=== PATIENT | female | born 1965 | race Caucasian/White ===

== ENCOUNTER 2018-04-10 00:29 | Outpatient (CLI) | payer MEDICAID, SELFPAY ==
--- NOTE | 2018-04-10 11:07 | DI.MAMMO_ITS ---
SYMPTOM/DIAGNOSIS: SCREENING, Z12.31, HEALTH MAINTENANCE, Z00.8 MAMMOGRAMS: Mammograms were interpreted according to the usual protocol including computer analysis with CAD system, tomosynthesis and C view imaging. Comparison with prior examinations. Breast density B. No masses or microcalcifications are seen. There is nothing to suggest malignancy. IMPRESSION: Negative mammogram. Routine screening is recommended. Category I. MQSA ASSESSMENT OF FINDINGS: Negative. Category 1. Patient will receive a letter notifying them of these results. BI-RADS category B. There are scattered areas of fibroglandular density.
== END 2018-04-10 00:49 ==
PROVIDERS: PCP Physician Assistant Medical; Visit Provider Physician Assistant Medical
DX: Z12.31 Encounter for screening mammogram for malignant neoplasm of breast (principal)
CPT/HCPCS: 77063; 77067

== ENCOUNTER 2018-06-21 20:58 | Outpatient (REF) | payer MEDICAID, SELFPAY ==
[2018-06-21 21:52] LABS: TSH (W/Ref FT4) 0.27 uIU/mL (0.358-3.74)
== END 2018-06-21 21:18 ==
LOC: NCHCN 20:58
PROVIDERS: PCP Physician Assistant Medical; Visit Provider Specialist/Technologist Athletic Trainer
DX: E03.9 Hypothyroidism, unspecified (principal)
CPT/HCPCS: 84439; 84443

== ENCOUNTER 2019-11-30 18:54 | Outpatient (REF) | payer MEDICAID, SELFPAY ==
[2019-11-30 20:10] LABS: ALT 37 U/L (14-59); AST 23 U/L (15-37); Albumin 4.2 g/dL (3.4-5.0); Alkaline Phosphatase 61 U/L (46-116); Anion Gap 8.2 mmol/L (3-11); BUN 21 mg/dL (7-18); Bilirubin, Total 0.3 mg/dL (0.2-1.0); CO2 29.8 mmol/L (21.0-32.0); CREATININE 1.02 mg/dL (0.55-1.02); Calcium 9.4 mg/dL (8.5-10.1); Calculated LDL 134 mg/dL (<100); Chloride 105 mmol/L (98-107); Cholesterol 214 mg/dL (<200); Estimated GFR 56.06 (mL/min/1.73m2); Glucose 91 mg/dL (74-106); HDL Cholesterol 50 mg/dL (40-60); Potassium 3.5 mmol/L (3.5-5.1); Sodium 143 mmol/L (136-145); TSH 0.46 uIU/mL (0.36-3.74); Total Protein 7.7 g/dL (6.4-8.2); Triglyceride 150 mg/dL (<150)
== END 2019-11-30 19:14 ==
LOC: NCHCN 18:54
PROVIDERS: PCP Physician Assistant Medical; Visit Provider Physician Assistant Medical
DX: E03.9 Hypothyroidism, unspecified (principal); E78.5 Hyperlipidemia, unspecified; I10 Essential (primary) hypertension
CPT/HCPCS: 80053; 80061; 84443

== ENCOUNTER 2020-04-14 16:57 | Outpatient (REF) | payer MEDICAID, SELFPAY | END 2020-04-14 17:17 | LOC: NCHCN 16:57 | PROVIDERS: PCP Physician Assistant Medical; Visit Provider Physician Assistant Medical | DX: N39.0 Urinary tract infection, site not specified (principal) | CPT/HCPCS: 87077; 87086; 87186 ==

== ENCOUNTER 2020-05-15 03:10 | Outpatient (CLI) | payer MEDICAID, SELFPAY ==
[2020-05-15 12:47] LABS: ALT 32 U/L (14-59); AST 18 U/L (15-37); Albumin 4.1 g/dL (3.4-5.0); Alkaline Phosphatase 61 U/L (46-116); Anion Gap 5.3 mmol/L (3-11); BUN 23 mg/dL (7-18); Bilirubin, Total 0.6 mg/dL (0.2-1.0); CO2 32.7 mmol/L (21.0-32.0); CREATININE 0.85 mg/dL (0.55-1.02); Calcium 9.2 mg/dL (8.5-10.1); Calculated LDL 124 mg/dL (<100); Chloride 101 mmol/L (98-107); Cholesterol 197 mg/dL (<200); Glucose 82 mg/dL (74-106); HDL Cholesterol 55 mg/dL (40-60); Sodium 139 mmol/L (136-145); Total Protein 7.3 g/dL (6.4-8.2); Triglyceride 93 mg/dL (<150)
== END 2020-05-15 03:30 ==
PROVIDERS: PCP Physician Assistant Medical; Visit Provider Physician Assistant Medical
DX: E78.5 Hyperlipidemia, unspecified (principal)
CPT/HCPCS: 36415; 80053; 80061

== ENCOUNTER 2021-07-13 10:00 | Outpatient (REF) | payer MEDICAID, SELFPAY ==
[2021-07-13 21:40] LABS: ALT 37 U/L (14-59); AST 18 U/L (15-37); Albumin 4.1 g/dL (3.4-5.0); Alkaline Phosphatase 67 U/L (46-116); Anion Gap 10.1 mmol/L (3-11); BUN 21 mg/dL (7-18); Bilirubin, Total 0.3 mg/dL (0.2-1.0); CO2 28.9 mmol/L (21.0-32.0); CREATININE 0.8 mg/dL (0.55-1.02); Calcium 9.6 mg/dL (8.5-10.1); Calculated LDL 161 mg/dL (<100); Chloride 102 mmol/L (98-107); Cholesterol 261 mg/dL (<200); Glucose 80 mg/dL (74-106); HDL Cholesterol 51 mg/dL (40-60); Potassium 3.5 mmol/L (3.5-5.1); Sodium 141 mmol/L (136-145); TSH 1.42 uIU/mL (0.36-3.74); Total Protein 7.7 g/dL (6.4-8.2); Triglyceride 246 mg/dL (<150)
== END 2021-07-13 10:01 | disposition home or self-care (01) ==
LOC: NCHCN 10:00
PROVIDERS: PCP Physician Assistant Medical; Visit Provider Physician Assistant Medical
DX: E03.9 Hypothyroidism, unspecified (principal); E78.5 Hyperlipidemia, unspecified
CPT/HCPCS: 80053; 80061; 84443

== ENCOUNTER 2021-10-12 15:09 | Outpatient (REF) | payer MEDICAID, SELFPAY ==
[2021-10-12 17:25] LABS: ALT 40 U/L (14-59); AST 23 U/L (15-37); Albumin 4.4 g/dL (3.4-5.0); Alkaline Phosphatase 70 U/L (46-116); Anion Gap 9.4 mmol/L (3-11); BUN 19 mg/dL (7-18); Bilirubin, Total 0.5 mg/dL (0.2-1.0); CO2 29.6 mmol/L (21.0-32.0); CREATININE 0.8 mg/dL (0.55-1.02); Calcium 9.3 mg/dL (8.5-10.1); Calculated LDL 140 mg/dL (<100); Chloride 104 mmol/L (98-107); Cholesterol 219 mg/dL (<200); Glucose 81 mg/dL (74-106); HDL Cholesterol 54 mg/dL (40-60); Potassium 3.9 mmol/L (3.5-5.1); Sodium 143 mmol/L (136-145); Total Protein 7.7 g/dL (6.4-8.2); Triglyceride 125 mg/dL (<150)
== END 2021-10-12 15:10 | disposition home or self-care (01) ==
LOC: NCHCN 15:09
PROVIDERS: PCP Physician Assistant Medical; Visit Provider Physician Assistant Medical
DX: E78.5 Hyperlipidemia, unspecified (principal)
CPT/HCPCS: 80053; 80061

== ENCOUNTER 2021-10-22 10:50 | Outpatient (REF) | payer MEDICAID, SELFPAY ==
[2021-10-22 15:31] LABS: Abs Immature Grans 0.03 10^3/uL (0.0-0.06); Absolute Basophil Count 0.02 10^3/uL (0.0-0.2); Absolute Eosinophil Count 0.06 10^3/uL (0.0-0.7); Absolute Monocyte Count 0.71 10^3/uL (0.1-0.8); Absolute Neutrophil Count 3.42 10^3/uL (1.2-6.7); Basophils % 0.4; Eosinophils % 1.1; HCT 43.2 % (36.0-46.0); HGB 14.8 g/dL (11.2-15.7); Immature Grans % 0.6; Lymphocytes % 19.1; MCH 31.1 pg (27.0-33.0); MCHC 34.3 % (32.0-36.0); MCV 91 fL (80-95); MPV 11.4 fL (8.0-11.0); Monocytes % 13.5; Neutrophils % 65.3; Platelet Count 211 10^3/uL (130-400); RBC 4.76 10^6/uL (3.93-5.22); RDW 12.6 % (11.7-14.6); RDW-SD 41.8 fL; WBC 5.24 10^3/uL (4.4-10.8)
[2021-10-22 15:38] LABS: Anion Gap 9.6 mmol/L (3-11); BUN 19 mg/dL (7-18); CO2 34.4 mmol/L (21.0-32.0); CREATININE 1.2 mg/dL (0.55-1.02); Calcium 9.4 mg/dL (8.5-10.1); Chloride 95 mmol/L (98-107); Estimated GFR 46.14 (mL/min/1.73m2); Glucose 96 mg/dL (74-106); Sodium 139 mmol/L (136-145)
[2021-10-22 15:51] LABS: Potassium 2.7 mmol/L (3.5-5.1)
[2021-10-22 18:38] LABS: Magnesium 2.1 mg/dL (1.8-2.4)
== END 2021-10-22 10:51 | disposition home or self-care (01) ==
LOC: NCHCN 10:50
PROVIDERS: PCP Physician Assistant Medical; Visit Provider Nurse Practitioner Family
DX: R19.7 Diarrhea, unspecified (principal)
CPT/HCPCS: 80048; 83735; 85025

== ENCOUNTER 2021-10-26 18:49 | Outpatient (REF) | payer MEDICAID, SELFPAY ==
[2021-10-26 15:55] LABS: Anion Gap 12.2 mmol/L (3-11); BUN 23 mg/dL (7-18); CO2 28.8 mmol/L (21.0-32.0); CREATININE 1.2 mg/dL (0.55-1.02); Calcium 8.7 mg/dL (8.5-10.1); Chloride 101 mmol/L (98-107); Estimated GFR 46.14 (mL/min/1.73m2); Glucose 134 mg/dL (74-106); Potassium 3.3 mmol/L (3.5-5.1); Sodium 142 mmol/L (136-145)
== END 2021-10-26 18:50 | disposition home or self-care (01) ==
LOC: NCHCN 18:49
PROVIDERS: PCP Physician Assistant Medical; Visit Provider Nurse Practitioner Family
DX: I10 Essential (primary) hypertension (principal)
CPT/HCPCS: 80048

== ENCOUNTER 2021-12-29 15:17 | Outpatient (REF) | payer MEDICAID, SELFPAY ==
[2021-12-29 16:04] LABS: ALT 31 U/L (14-59); AST 17 U/L (15-37); Alkaline Phosphatase 58 U/L (46-116); BUN 24 mg/dL (7-18); Bilirubin, Total 0.3 mg/dL (0.2-1.0); CREATININE 0.9 mg/dL (0.55-1.02); Calculated LDL 85 mg/dL (<100); Chloride 103 mmol/L (98-107); Cholesterol 170 mg/dL (<200); Glucose 97 mg/dL (74-106); HDL Cholesterol 52 mg/dL (40-60); Potassium 3.2 mmol/L (3.5-5.1); Sodium 144 mmol/L (136-145); Total Protein 7.6 g/dL (6.4-8.2); Triglyceride 166 mg/dL (<150)
== END 2021-12-29 15:18 | disposition home or self-care (01) ==
LOC: NCHCN 15:17
PROVIDERS: PCP Physician Assistant Medical; Visit Provider Physician Assistant Medical
DX: E78.5 Hyperlipidemia, unspecified (principal); E87.6 Hypokalemia
CPT/HCPCS: 80053; 80061

== ENCOUNTER 2022-04-21 15:51 | Outpatient (REF) | payer MEDICAID, SELFPAY ==
[2022-04-21 20:56] LABS: Anion Gap 7.8 mmol/L (3-11); BUN 23 mg/dL (7-18); CO2 31.2 mmol/L (21.0-32.0); CREATININE 0.9 mg/dL (0.55-1.02); Calcium 9.6 mg/dL (8.5-10.1); Chloride 101 mmol/L (98-107); Glucose 101 mg/dL (74-106); Sodium 140 mmol/L (136-145); TSH 0.54 uIU/mL (0.36-3.74)
== END 2022-04-21 15:52 | disposition home or self-care (01) ==
LOC: NCHCN 15:51
PROVIDERS: PCP Physician Assistant Medical; Visit Provider Physician Assistant Medical
DX: E03.9 Hypothyroidism, unspecified (principal); E87.6 Hypokalemia
CPT/HCPCS: 80048; 84443

== ENCOUNTER 2022-05-17 04:18 | Outpatient (CLI) | payer MEDICAID, SELFPAY ==
[2022-05-17 12:39] LABS: Anion Gap 9.8 mmol/L (3-11); BUN 23 mg/dL (7-18); CO2 29.2 mmol/L (21.0-32.0); CREATININE 0.8 mg/dL (0.55-1.02); Calcium 9.5 mg/dL (8.5-10.1); Chloride 102 mmol/L (98-107); Estimated GFR 85.35 (mL/min/1.73m2); Glucose 96 mg/dL (74-106); Potassium 3.4 mmol/L (3.5-5.1); Sodium 141 mmol/L (136-145)
== END 2022-05-17 04:19 | disposition home or self-care (01) ==
LOC: LOS 04:18
PROVIDERS: PCP Physician Assistant Medical; Visit Provider Physician Assistant Medical
DX: E87.6 Hypokalemia (principal)
CPT/HCPCS: 36415; 80048

== ENCOUNTER 2022-12-21 11:22 | Outpatient (REF) | payer MEDICAID, SELFPAY ==
[2022-12-21 16:04] LABS: Abs Immature Grans 0.02 10^3/uL (0.0-0.06); Absolute Basophil Count 0.03 10^3/uL (0.0-0.2); Absolute Eosinophil Count 0.33 10^3/uL (0.0-0.7); Absolute Lymphocyte Count 1.24 10^3/uL (1.2-3.4); Absolute Monocyte Count 0.46 10^3/uL (0.1-0.8); Absolute Neutrophil Count 5.13 10^3/uL (1.2-6.7); Basophils % 0.4; Eosinophils % 4.6; HCT 39.3 % (36.0-46.0); HGB 13.4 g/dL (11.2-15.7); Immature Grans % 0.3; Lymphocytes % 17.2; MCH 31.6 pg (27.0-33.0); MCHC 34.1 % (32.0-36.0); MCV 93 fL (80-95); MPV 11.3 fL (8.0-11.0); Monocytes % 6.4; Neutrophils % 71.1; Platelet Count 221 10^3/uL (130-400); RBC 4.24 10^6/uL (3.93-5.22); RDW 13.7 % (11.7-14.6); RDW-SD 46.7 fL; WBC 7.21 10^3/uL (4.4-10.8)
[2022-12-21 16:27] LABS: ALT 29 U/L (14-59); AST 23 U/L (15-37); Alkaline Phosphatase 62 U/L (46-116); Anion Gap 7.9 mmol/L (3-11); BUN 17 mg/dL (7-18); Bilirubin, Total 0.3 mg/dL (0.2-1.0); CO2 31.1 mmol/L (21.0-32.0); CREATININE 0.8 mg/dL (0.55-1.02); Calcium 9.2 mg/dL (8.5-10.1); Calculated LDL 101 mg/dL (<100); Chloride 104 mmol/L (98-107); Cholesterol 175 mg/dL (<200); Estimated GFR 84.82 (mL/min/1.73m2); Ferritin 121 ng/mL (8-252); Glucose 91 mg/dL (74-106); HDL Cholesterol 51 mg/dL (40-60); Magnesium 1.8 mg/dL (1.8-2.4); Potassium 3.3 mmol/L (3.5-5.1); Sodium 143 mmol/L (136-145); TSH 0.64 uIU/mL (0.36-3.74); Total Protein 7.1 g/dL (6.4-8.2); Triglyceride 118 mg/dL (<150)
[2022-12-22 11:04] LABS: Lyme Ab w Rflx to Lyme Confirm Negative (Negative)
[2022-12-23 18:43] LABS: Anaplasma phagocytophilum Negative (Negative); B. miyamotoi PCR Negative (Negative); Babesia divergens/MO-1 Negative (Negative); Babesia duncani Negative (Negative); Babesia microti Negative (Negative); Ehrlichia chaffeensis Negative (Negative); Ehrlichia ewingii/canis Negative (Negative); Ehrlichia muris eauclairensis Negative (Negative)
== END 2022-12-21 11:23 | disposition home or self-care (01) ==
LOC: NCHCN 11:22
PROVIDERS: PCP Physician Assistant Medical; Visit Provider Physician Assistant Medical
DX: E78.5 Hyperlipidemia, unspecified (principal); E03.9 Hypothyroidism, unspecified; I10 Essential (primary) hypertension; M79.18 Myalgia, other site; R79.89 Other specified abnormal findings of blood chemistry
CPT/HCPCS: 80053; 80061; 87798; 82728; 83735; 84443; 85025; 86618

== ENCOUNTER 2023-01-10 13:42 | Outpatient (REF) | payer MEDICAID, SELFPAY ==
[2023-01-10 16:44] LABS: Anion Gap 6.8 mmol/L (3-11); BUN 21 mg/dL (7-18); CO2 29.2 mmol/L (21.0-32.0); CREATININE 0.8 mg/dL (0.55-1.02); Calcium 9.3 mg/dL (8.5-10.1); Chloride 104 mmol/L (98-107); Estimated GFR 84.82 (mL/min/1.73m2); Glucose 139 mg/dL (74-106); Potassium 3.1 mmol/L (3.5-5.1); Sodium 140 mmol/L (136-145)
== END 2023-01-10 13:43 | disposition home or self-care (01) ==
LOC: NCHCN 13:42
PROVIDERS: PCP Physician Assistant Medical; Visit Provider Physician Assistant Medical
DX: E87.6 Hypokalemia (principal)
CPT/HCPCS: 80048

== ENCOUNTER 2023-01-26 17:13 | Outpatient (REF) | payer MEDICAID, SELFPAY ==
[2023-01-26 21:51] LABS: ESR 9 mm/hr (0-30)
[2023-01-26 22:01] LABS: Anion Gap 5.9 mmol/L (3-11); BUN 17 mg/dL (7-18); C-Reactive Protein 0.07 mg/dL (0.0-0.3); CO2 32.1 mmol/L (21.0-32.0); CREATININE 0.9 mg/dL (0.55-1.02); Calcium 9.3 mg/dL (8.5-10.1); Chloride 106 mmol/L (98-107); Estimated GFR 73.64 (mL/min/1.73m2); Glucose 151 mg/dL (74-106); Potassium 3.6 mmol/L (3.5-5.1); Sodium 144 mmol/L (136-145)
[2023-01-27 18:48] LABS: Rheumatoid Factor <8.6 IU/mL (<12.0)
[2023-01-31 11:58] LABS: c-ANCA Negative (Negative); p-ANCA Negative (Negative)
[2023-01-31 16:06] LABS: ANA Interpretation Positive (Negative); ANA Titer Pattern 1:80 Homogeneous
== END 2023-01-26 17:14 | disposition home or self-care (01) ==
LOC: NCHCN 17:13
PROVIDERS: PCP Physician Assistant Medical; Visit Provider Physician Assistant Medical
DX: E87.6 Hypokalemia (principal)
CPT/HCPCS: 80048; 85652; 86038; 86140; 86255; 86431

== ENCOUNTER 2023-03-09 15:07 | Outpatient (REF) | payer MEDICAID, SELFPAY ==
[2023-03-09 16:07] LABS: Anion Gap 8.8 mmol/L (3-11); BUN 16 mg/dL (7-18); CO2 29.2 mmol/L (21.0-32.0); CREATININE 0.9 mg/dL (0.55-1.02); Calcium 9.4 mg/dL (8.5-10.1); Chloride 103 mmol/L (98-107); Estimated GFR 73.64 (mL/min/1.73m2); Glucose 137 mg/dL (74-106); Potassium 3.5 mmol/L (3.5-5.1); Sodium 141 mmol/L (136-145)
== END 2023-03-09 15:08 | disposition home or self-care (01) ==
LOC: NCHCN 15:07
PROVIDERS: PCP Physician Assistant Medical; Visit Provider Physician Assistant Medical
DX: E87.6 Hypokalemia (principal); I10 Essential (primary) hypertension
CPT/HCPCS: 80048

== ENCOUNTER → 2023-03-24 00:31 | Outpatient (CLI) | payer MEDICAID, SELFPAY ==
--- NOTE | 2023-03-24 | DI.RAD_ITS ---
Exam(s) XR KNEE RT 3V AP,LAT,RAJ EXAM: XR KNEE RT 3V AP,LAT,RAJ CLINICAL HISTORY: ARTHRAGLIAS, M25.50. TECHNIQUE: 2D digital imaging was performed of the right knee. Three views obtained. AP, lateral an d PA tunnel views were obtained. COMPARISON: CR XR KNEE LT 3V AP,LAT,RAJ from 03/24/2023 FINDINGS: BONES: No acute fracture is present. No bony destructive lesion is seen. There are subchondral cysts seen in the proximal tibia. JOINTS: There are marked degenerative changes seen in the right knee characterized by joint space ethan rowing and osteophytes. The findings are most marked in the lateral femoral tibial patellofemoral jenifer int. There are several calcifications seen on the lateral view which may represent loose bodies. Th e largest is seen inferior to the patella. SOFT TISSUE: Normal. IMPRESSION: Marked degenerative changes of the right knee with possible loose bodies. DATA REPOSITORY: RADIATION DOSE DELIVERED:
--- NOTE | 2023-03-24 | DI.RAD_ITS ---
Exam(s) XR HAND RT COMPLETE EXAM: XR HAND RT COMPLETE CLINICAL HISTORY: ARTHRALGIAS, M25.50. TECHNIQUE: 2D digital imaging was performed of the right hand. Three images were obtained. AP, late ral and oblique views were obtained. COMPARISON: No exams were available for comparison FINDINGS: BONES: There is fragmentation of the capitate. This appears old. There is a lucency through the mid capitate. No bony destructive lesion is seen. JOINTS: No dislocation present. The metacarpophalangeal joints are well maintained. No erosions or j oint space narrowing is seen. There are mild degenerative changes seen in the hand characterized by osteophytes and joint space narrowing. The findings are most marked at the interphalangeal joints of the fingers. SOFT TISSUE: Normal. IMPRESSION: 1. Mild degenerative changes of the hand. 2. Fragmentation of the capitate which may represent an old nonunited fracture. DATA REPOSITORY: RADIATION DOSE DELIVERED:
--- NOTE | 2023-03-24 | DI.RAD_ITS ---
Exam(s) XR KNEE LT 3V AP,LAT,RAJ EXAM: XR KNEE LT 3V AP,LAT,RAJ CLINICAL HISTORY: ARTHRALGIAS, M25.50. TECHNIQUE: 2D digital imaging was performed of the left knee. Three images were obtained. AP, late ral and PA tunnel views were obtained. COMPARISON: No exams were available for comparison FINDINGS: BONES: No acute fracture is present. No bony destructive lesion is seen. JOINTS: Tricompartment degenerative changes are seen in the knee characterized by joint space narrowi ng and osteophytes. The findings are most marked in the medial femoral tibial and patellofemoral dianne nts. No loose body. SOFT TISSUE: Normal. IMPRESSION: Moderately severe degenerative changes of the left knee. DATA REPOSITORY: RADIATION DOSE DELIVERED:
--- NOTE | 2023-03-24 | DI.RAD_ITS ---
Exam(s) XR HAND LT COMPLETE EXAM: XR HAND LT COMPLETE CLINICAL HISTORY: ARTHRALGIAS, M25.50. TECHNIQUE: 2D digital imaging was performed of the left hand. Three views were obtained. AP, later al and oblique views were obtained. COMPARISON: No exams were available for comparison FINDINGS: BONES: No acute fracture is present. No bony destructive lesion is seen. JOINTS: No dislocation present. Moderate degenerative changes are seen in the left hand characterized by joint space narrowing and osteophytes. No erosions are seen. No periarticular osteopenia is pre sent. SOFT TISSUE: No suspicious soft tissue calcifications are seen. IMPRESSION: Osteoarthritis of the hand. DATA REPOSITORY: RADIATION DOSE DELIVERED:
== END ==
PROVIDERS: PCP Physician Assistant Medical; Visit Provider Physician Assistant Medical
DX: M17.0 Bilateral primary osteoarthritis of knee (principal)
CPT/HCPCS: 73562; 73130

== ENCOUNTER → 2023-04-12 02:14 | Outpatient (CLI) | payer MEDICAID, SELFPAY ==
--- NOTE | 2023-04-12 | DI.MAMMO_ITS ---
Exam(s) MAMMO SCREENING EXAM: MAMMO SCREENING CLINICAL HISTORY: SCREENING, Z12.31 TECHNIQUE: Bilateral full field digital CC and MLO mammographic images were obtained with 3D tomosyn thesis and utilizing computer aided detection (CAD). COMPARISON: Available for comparison. FINDINGS: Masses/Architectural Distortion: None seen. Microcalcifications: No suspicious pleomorphic-type are seen. Skin Thickening/Nipple Retraction: None. IMPRESSION: 1. No significant interval change with no specific features of malignancy noted. 2. Unless there is more urgent need, screening mammography is recommended, as per [employer] guidelines. BI-RADS Category 1 - Negative Breast Density - Category B - Scattered areas of fibroglandular density Breast density category C or D implies that the patient has dense breast tissue. Dense breast tissue is very common and is not abnormal but dense breast tissue can make it harder to find cancer on a ma mmogram. Also, dense breast tissue may increase their breast cancer risk. This information about the result of the mammogram report was provided to the patient to raise their awareness. Use this report when you speak with the patient about their risks for breast cancer, which includes their family hist ory. At that time, you may recommend for more screening tests (Ultrasound or MRI) as they might be us eful based on their risk. A negative radiographic report should not delay biopsy if a dominant or clinically suspicious mass is present. Up to ten percent of cancers are not identified on mammography. A negative report may reinforce clinical impression. Adenosis and dense breasts may obscure an underlying neoplasm. False positive reports average 6 to 10%. Patient will receive a letter notifying them of these results.
== END ==
PROVIDERS: PCP Physician Assistant Medical; Visit Provider Physician Assistant Medical
DX: Z12.31 Encounter for screening mammogram for malignant neoplasm of breast (principal)
CPT/HCPCS: 77063; 77067

== ENCOUNTER 2023-09-12 15:23 | Outpatient (CLI) | payer MEDICAID, SELFPAY ==
--- NOTE | 2023-09-12 10:30 | DI.RAD_ITS ---
Exam(s) XR STANDING ALIGNMENT EXAM: XR STANDING ALIGNMENT CLINICAL HISTORY: BILATERAL KNEE OA. TECHNIQUE: 2D digital imaging was performed. Four images were obtained. COMPARISON: CR RT HIP COMPLETE AP PELVIS from 04/26/2014 CR XR KNEE LT 3V AP,LAT,RAJ from 03/24/2023 CR XR KNEE RT 3V AP,LAT,RAJ from 03/24/2023 FINDINGS: BONES: Since the prior examination the patient has undergone a right total hip replacement. There ar e marked degenerative changes seen in the right knee particularly laterally, characterized by marked narrowing of the joint space and osteophytes. Moderate degenerative changes are seen in the left kne e characterized by joint space narrowing and osteophytes. There is genu valgus on the right. The an kles are well maintained.There is a 2 cm leg length discrepancy with the left longer than the right. SOFT TISSUE: Normal. IMPRESSION: Marked degenerative changes seen in the right knee, moderate degenerative changes seen in the left kn ee. DATA REPOSITORY: RADIATION DOSE DELIVERED:
== END 2023-09-12 15:24 | disposition home or self-care (01) ==
LOC: DIORS 15:24
PROVIDERS: PCP Physician Assistant Medical; Visit Provider Student in an Organized Health Care Education/Training Program
DX: M17.0 Bilateral primary osteoarthritis of knee (principal)
CPT/HCPCS: 77073

== ENCOUNTER 2023-09-20 04:36 | Outpatient (CLI) | payer MEDICAID, SELFPAY ==
[2023-09-20 09:59] LABS: HGB 14.5 g/dL (11.2-15.7); MCH 32.2 pg (27.0-33.0); MCHC 34.5 % (32.0-36.0); MCV 93 fL (80-95); MPV 10.9 fL (8.0-11.0); Platelet Count 222 10^3/uL (130-400); RBC 4.51 10^6/uL (3.93-5.22); RDW-SD 44.6 fL; WBC 7.27 10^3/uL (4.4-10.8)
[2023-09-20 10:36] LABS: Anion Gap 9.8 mmol/L (3-11); BUN 23 mg/dL (7-18); CO2 29.2 mmol/L (21.0-32.0); CREATININE 0.8 mg/dL (0.55-1.02); Calcium 9.6 mg/dL (8.5-10.1); Chloride 103 mmol/L (98-107); Estimated GFR 84.82 (mL/min/1.73m2); Glucose 98 mg/dL (74-106); Potassium 3.5 mmol/L (3.5-5.1); Sodium 142 mmol/L (136-145)
== END 2023-09-20 04:37 | disposition home or self-care (01) ==
LOC: LBO 04:36
PROVIDERS: PCP Physician Assistant Medical; Visit Provider Student in an Organized Health Care Education/Training Program
DX: M17.0 Bilateral primary osteoarthritis of knee (principal); Z01.818 Encounter for other preprocedural examination
CPT/HCPCS: 36415; 80048; 85027

== ENCOUNTER 2023-09-27 08:15 | Day surgery (SDC) | payer MEDICAID, SELFPAY ==
[2023-09-27 08:44] VITALS: BP 206/95; PULSE 69; RESP 18; TEMP 36.1; O2SAT 98
[2023-09-27 09:38] VITALS: BP 197/94; PULSE 66; RESP 18; TEMP 36.6; O2SAT 96
--- NOTE | 2023-09-27 09:44 | W.ANESPRE ---
General Info Date of Service Date Performed: 09/27/23 Height: 5 ft 5 in Weight: 101.4 kg Body Mass Index (BMI): 37.2 Surgical Procedure: Operation Date: 09/27/23 11:05 Proposed Procedure Side Surgeon p Knee Total Arthroplasty Bilateral w/OrthAlign, Cementless CR Bilateral Nabil Gregory MD Meds Allergies and Home Medications Allergies Allergy/AdvReac Type Severity Reaction Status Date / Time codeine AdvReac Other (See Verified 09/27/23 08:35 Comment) Home Medication Medication Instructions Recorded atenolol 50 mg tablet 50 mg PO DAILY 09/12/23 hydrochlorothiazide 25 mg tablet 25 mg PO DAILY 09/12/23 levothyroxine 125 mcg capsule 125 mcg PO DAILY 09/12/23 potassium chloride 20 mEq 20 meq PO DAILY 09/12/23 tablet,extended release rosuvastatin 20 mg tablet 20 mg PO DAILY 09/12/23 Current Visit Medications: Current Medications Generic Name Dose Route Start Last Admin Trade Name Freq PRN Reason Stop Dose Admin Acetaminophen 1,000 mg 09/27/23 06:00 Acetaminophen 500 Mg Tab PO 09/27/23 23:59 PREOP JOSE Celecoxib 400 mg 09/27/23 06:00 Celecoxib 200 Mg Cap PO 09/27/23 23:59 PREOP JOSE Gabapentin 300 mg 09/27/23 06:00 Gabapentin 300 Mg Cap PO 09/27/23 23:59 PREOP JOSE Ringer's Solution 1,000 mls @ 80 mls/hr 09/27/23 06:00 IV 09/27/23 23:59 INFUSION JOSE Cefazolin Sodium/Dextrose 2 gm in 50 mls @ 100 mls/hr 09/27/23 06:00 Ancef Duplex IVPB 09/27/23 23:59 PREOP JOSE Tranexamic Acid/Sodium Chloride 1,000 mg in 100 mls @ 600 mls/hr 09/27/23 06:00 IVPB 09/27/23 23:59 PREOP JOSE Tranexamic Acid/Sodium Chloride 1,000 mg in 100 mls @ 600 mls/hr 09/27/23 06:00 IVPB 09/27/23 23:59 DIRECTED JOSE IV Miscellaneous Supplies 1 each 09/27/23 06:00 Iv Access IV 09/27/23 23:59 DIRECTED JOSE Sodium Chloride 0 ml 09/27/23 06:00 Normal Saline Flush 10 Ml Syr IV 09/27/23 23:59 PRN PRN Sodium Chloride 0 ml 09/27/23 06:00 Normal Saline 10 Ml Vial IJ 09/27/23 23:59 DIRECTED PRN Sterile Water 0 ml 09/27/23 06:00 Water,Injection,Sterile 10 Ml Vial IJ 09/27/23 23:59 DIRECTED PRN PFSH Active Problems Active Problems: Problem Status Onset Code Bilateral primary osteoarthritis of knee M17.0 Medical History Medical History Hyperlipidemia Hypothyroid Hypertension Tobacco Smoking/Tobacco Use Status: Never Alcohol Alcohol Intake: never Substance Use Substance use: Never Substance use type: does not use Vital Signs and Lab Results Vital Signs Most Recent Vital Signs in EMR: Most Recent Vital Signs Temp Pulse Resp BP Pulse Ox 36.1 C L 69 18 206/95 H 98 09/27/23 08:44 09/27/23 08:44 09/27/23 08:44 09/27/23 08:44 09/27/23 08:44 Lab Results Blood Type / Crossmatch: No Data to Display Complete Blood Count: White Blood Count 7.27 10^3/uL (4.4-10.8) 09/20/23 09:52 Red Blood Count 4.51 10^6/uL (3.93-5.22) 09/20/23 09:52 Hemoglobin 14.5 g/dL (11.2-15.7) 09/20/23 09:52 Hematocrit 42.0 % (36.0-46.0) 09/20/23 09:52 Platelet Count 222 10^3/uL (130-400) 09/20/23 09:52 Complete Metabolic Panel: Sodium 142 mmol/L (136-145) 09/20/23 09:52 Potassium 3.5 mmol/L (3.5-5.1) 09/20/23 09:52 Chloride 103 mmol/L (98-107) 09/20/23 09:52 Carbon Dioxide 29.2 mmol/L (21.0-32.0) 09/20/23 09:52 BUN 23 mg/dL (7-18) H 09/20/23 09:52 Creatinine 0.8 mg/dL (0.55-1.02) 09/20/23 09:52 Est GFR (CKD-EPI 2020) 84.82 (mL/min/1.73m2) 09/20/23 09:52 Calcium 9.6 mg/dL (8.5-10.1) 09/20/23 09:52 Glucose 98 mg/dL (74-106) 09/20/23 09:52 Liver Function Panel: No Data to Display Coagulation Panel: No Data to Display Cardiac Panel: No Data to Display Arterial Blood Gas: No Data to Display Venous Blood Gas: No Data to Display Pancreas Panel: No Data to Display Thyroid Panel: No Data to Display Infectious Disease: No Data to Display Blood Cultures: No Data to Display Toxicology Panel: No Data to Display Anesthesia Assessment and Plan Anesthesia History Personal History: PONV Family History: No Family History of Anesthesia Complications Exercise Tolerance Exercise Tolerance: Metabolic Equivalents>4 Pertinent Negatives Pertinent Negatives: No Symptoms of GERD, No Major Cardiovascular Symptoms or Complaints and No Major Pulmonary Symptoms or Complaints Cardiac & Pulmonary Exam Cardiac Exam: Normal S1/S2 Heart Sounds Pulmonary Exam: Clear Bilateral Breath Sounds Implantable Cardiac Device Does patient have a Pacemaker or an ICD?: No Airway Exam Known Difficult Airway: No Mallampati Class: 1 Mouth Opening: Normal (> 3cm) Thyromental Distance: Greater than 3 cm Neck Range of Motion: Full ROM Neck Circumference: Thick Teeth Condition: Normal Dentition ASA Classification ASA Score: ASA 2 Emergency Case?: No NPO Status NPO Status: NPO Clears >2 hours, Solids >8 hours Anesthesia Plan Resuscitation Status: Full Code Anesthesia Technique: Spinal Anesthesia Airway Planned: Natural Airway Pain Management: Surgeon and patient request nerve block Monitors Used: Standard Monitors Preoperative Comments:: Patient presents with elevated blood pressure this morning. Reviewed historical data to include her office visit. Patient is very anxious and a long discussion with the patient and her was had to gather information about her blood pressure and management. Plan is review full anesthetic plan, place IV, treat the anxiety and reassess her blood pressure. Dr. Gregory aware of the plan.
[2023-09-27 09:45] VITALS: BP 196/95; PULSE 68; RESP 16; TEMP 36.6; O2SAT 95; BMI 37.2
[2023-09-27 09:59] VITALS: BP 166/84; PULSE 67; RESP 16; O2SAT 96
--- NOTE | 2023-09-27 10:57 | PDOC.DSDIS_ITS ---
Date of service: 09/27/23 Time of Service: 10:57 Discharge Plan Disposition Patient Disposition: Home Condition: Stable Discharge Details Reason For Visit: bilateral knee OA, hypertension Attending Provider: Nabil Gregory Primary Care Provider: Ana María Elias Home Meds and New Rx's Prescriptions: New tramadol 50 mg tablet 50 mg PO Q8H PRNQty: 18 0RF Continued atenolol 50 mg tablet 50 mg PO DAILY rosuvastatin 20 mg tablet 20 mg PO DAILY hydrochlorothiazide 25 mg tablet 25 mg PO DAILY levothyroxine 125 mcg capsule 125 mcg PO DAILY potassium chloride 20 mEq tablet extended release 20 meq PO DAILY Discharge Instructions Additional Instructions: Unfortunately, your knee replacement was canceled due to persistent hypertension. Is important that we follow this at home. I recommend checking your blood pressure at least 2-3 times a day around the same time each day utilizing the same machine in the same arm. This should be tracked and followed. I will reach out to Lucia to discuss the case and any changes to medications. I would recommend trying to avoid the anti-in flammatories to see if this is a role in her current blood pressure given how much you have been taking. I called in tramadol to help out with pain to hopefully replace the ibuprofen you are taking. Discharge Orders Discharge Orders: Discharge Order (Routine); Ordered 09/27/23 Ordered By: Nabil Gregory
[2023-09-27] MEDS: traMADol 50 MG TAB PO (11:01)
--- NOTE | 2023-09-27 11:17 | NUR.NOTE ---
Patient procedure cancelled per PEN RIDER nad Surgeon. Patient received verbal and printed discharge/cancellation instructions. Patient VSS. Patient A & O upon cancellation and discharge back to home. Walter Meyer RN 09/27/23 at 11:16am. Nursing Note:
--- NOTE | 2023-09-27 12:21 | PDOC.ANES ---
Date of service: 09/27/23 Time of Service: 10:00 Anesthesia Note Report Anesthesia Note: Unfortunately the case was cancelled today. The patient had persistent uncontrolled hypertension. The patient historically does not take her blood pressure at home. During her office visit for surgery, it was elevated, but within an acceptable range. Today modifiable factors were attempted to be controlled, most notably anxiety. The preoperative interview was completed as well as consent for the plan, then an IV was placed and midazolam was administered. Unfortunately, despite the patient resting/sleeping comfortably in bed, her blood pressure remained elevated. The risk of proceeding was thoroughly reviewed with the patient and her , they both verbalized understanding. Dr. Gregory made aware and patient will follow up with PCP.
== END 2023-09-27 08:16 | disposition home or self-care (01) ==
PROVIDERS: PCP Physician Assistant Medical; Visit Provider Student in an Organized Health Care Education/Training Program
DX: Z53.09 Procedure and treatment not carried out because of other contraindication (principal)
CPT/HCPCS: J0665; J2250

== ENCOUNTER 2023-12-13 16:10 | Observation (INO) | payer MEDICAID, SELFPAY ==
[2023-12-13] VITALS (41 sets, daily range): BP systolic 122–208; BP diastolic 64–169; PULSE 67–84; RESP 15–28; TEMP 36.2–36.9; O2SAT 89–98; BMI 36.8
[2023-12-13] MEDS: Gabapentin 300 MG CAP PO ×2 (08:58→21:03)
[2023-12-13] MEDS: Acetaminophen 500 MG TAB 1000 MG PO ×2 (08:58→21:02)
[2023-12-13] MEDS: Celecoxib 200 MG CAP 400 MG PO (08:58)
--- NOTE | 2023-12-13 09:32 | HPE_ITS ---
Assessment and Plan Assessment and plan (1) Bilateral primary osteoarthritis of knee: Status: Acute Assessment and plan: Cate is a 58-year-old female who has bilateral knee osteoarthritis. She has failed other nonoperative options and is here today for bilateral knee replacements. She had been previously seen for this yet the surgery had to be canceled due to hypertension and then secondarily due to gastroenteritis. Please see previous office note for more detailed history. Once again today, reviewed knee replacement with her. I had a long discussion in regards to surgical replacement of the knee. I went over in detail the possible compl ications of knee replacement. These include but are not limited to bleeding, infection, pain, stiffness, weakness, damage to nerves, damage to vessels, damage to muscle and tendon, fracture, leg length inequality, wound healing complications, instability, component loosening, and blood clot. Questions were answered. I again expressed that this is a surgery to improve functional quality of life. After a review of the presented information and risks, Cate desired to proceed. History of Present Illness History of Present Illness Chief Complaint: Bilateral knee pain Narrative: Cate is a 58-year-old female with bilateral knee osteoarthritis. She has failed nonoperative options and was booked previously for total knee replacement on both sides. Unfortunately, that surgery was canceled due to persistent hypertension. She has since seen her primary care physician and has been taking a modified regimen of antihypertensives with better control. She had canceled the rescheduled surgery due to gastroenteritis. She now feels fully recovered. She denies any recent illness in the last 2 to 4 weeks. She denies fevers or chills. No cough. No congestion, no chest pain, no shortness of breath, no GI upset. Review of Systems All systems reviewed & are unremarkable except as noted in HPI and below PFSH All Active Problems Bilateral primary osteoarthritis of knee (Acute) Medical History Hyperlipidemia Hypothyroid Hypertension Surgical History Hx laparoscopic cholecystectomy History of total right hip arthroplasty Social History Smoking/Tobacco Use Status: Never Smoking risk assessment performed?: Yes Alcohol Intake: never Drug use: Never Substance use type: does not use Housing: house Do you feel safe at home: Yes Do you feel safe in your relationship?: Yes Meds Allergies and Home Medications Allergies Allergy/AdvReac Type Severity Reaction Status Date / Time codeine AdvReac Other (See Verified 12/13/23 08:52 Comment) Home Medications Medication Instructions Recorded Confirmed Type atenolol 50 mg tablet 100 mg PO DAILY 09/12/23 12/13/23 History hydrochlorothiazide 25 mg tablet 25 mg PO DAILY 09/12/23 12/13/23 History levothyroxine 125 mcg capsule 125 mcg PO DAILY 09/12/23 12/13/23 History potassium chloride 20 mEq 20 meq PO DAILY 09/12/23 12/13/23 History tablet,extended release rosuvastatin 20 mg tablet 20 mg PO DAILY 09/12/23 12/13/23 History tramadol 50 mg tablet 50 mg PO Q8H PRN #18 tabs 09/27/23 12/12/23 Rx acetaminophen 500 mg tablet 1,000 mg (2 x 500 mg) PO Q8H PRN 12/13/23 Rx pain #90 tabs aspirin 81 mg tablet,delayed 81 mg PO BID 30 days #60 tabs 12/13/23 Rx release celecoxib 200 mg capsule (Celebrex) 200 mg PO BID PRN #60 caps 12/13/23 Rx dexamethasone 4 mg tablet 4 mg PO DAILY #2 tabs 12/13/23 Rx docusate sodium 100 mg capsule 100 mg PO BID #30 caps 12/13/23 Rx (Colace) gabapentin 300 mg capsule 300 mg PO QHS #14 caps 12/13/23 Rx oxycodone 5 mg tablet 5 mg PO Q4H PRN #18 tabs 12/13/23 Rx pantoprazole 40 mg tablet,delayed 40 mg PO DAILY #14 tabs 12/13/23 Rx release Exam Const General: cooperative, healthy appearing, comfortable and no acute distress Resp Auscultation: clear to auscultation bilaterally Percussion: percussion normal Cardio Rate: regular rate Rhythm: regular rhythm Results Last Vital Signs Temp 36.2 C L 12/13/23 08:32 Pulse 74 12/13/23 08:32 Resp 16 12/13/23 08:32 BP 183/96 H 12/13/23 09:13 Pulse Ox 98 12/13/23 08:32
[2023-12-13] MEDS: Lactated Ringers 1,000 ML 80 ML IV (10:11)
--- NOTE | 2023-12-13 10:25 | W.ANESPRE ---
General Info Date of Service Date Performed: 12/13/23 Height: 5 ft 5 in Weight: 100.3 kg Body Mass Index (BMI): 36.8 Surgical Procedure: Operation Date: 12/13/23 10:35 Proposed Procedure Side Surgeon p Knee Total Arthroplasty Bilateral, OrthAlign, Cementless CR Bilateral Nabil Gregory MD Pre-Op Diagnosis Post-Op Diagnosis OSTEOARTHRITIS BILATERAL KNEES Meds Allergies and Home Medications Allergies Allergy/AdvReac Type Severity Reaction Status Date / Time codeine AdvReac Other (See Verified 12/13/23 08:52 Comment) Home Medication Medication Instructions Recorded atenolol 50 mg tablet 100 mg PO DAILY 09/12/23 hydrochlorothiazide 25 mg tablet 25 mg PO DAILY 09/12/23 levothyroxine 125 mcg capsule 125 mcg PO DAILY 09/12/23 potassium chloride 20 mEq 20 meq PO DAILY 09/12/23 tablet,extended release rosuvastatin 20 mg tablet 20 mg PO DAILY 09/12/23 tramadol 50 mg tablet 50 mg PO Q8H PRN #18 tabs 09/27/23 acetaminophen 500 mg tablet 1,000 mg (2 x 500 mg) PO Q8H PRN 12/13/23 pain #90 tabs aspirin 81 mg tablet,delayed 81 mg PO BID 30 days #60 tabs 12/13/23 release celecoxib 200 mg capsule (Celebrex) 200 mg PO BID PRN #60 caps 12/13/23 dexamethasone 4 mg tablet 4 mg PO DAILY #2 tabs 12/13/23 docusate sodium 100 mg capsule 100 mg PO BID #30 caps 12/13/23 (Colace) gabapentin 300 mg capsule 300 mg PO QHS #14 caps 12/13/23 oxycodone 5 mg tablet 5 mg PO Q4H PRN #18 tabs 12/13/23 pantoprazole 40 mg tablet,delayed 40 mg PO DAILY #14 tabs 12/13/23 release Current Visit Medications: Current Medications Generic Name Dose Route Start Last Admin Trade Name Freq PRN Reason Stop Dose Admin Acetaminophen 1,000 mg 12/13/23 06:00 12/13/23 08:58 Acetaminophen 500 Mg Tab PO 12/13/23 16:00 1,000 mg PREOP JOSE Administration Acetaminophen 1,000 mg 12/13/23 14:00 Acetaminophen 500 Mg Tab PO 01/12/24 13:59 TID JOSE Aspirin 81 mg 12/13/23 08:30 Aspirin E.C. 81 Mg Tabec PO 01/12/24 08:29 BID JOSE Celecoxib 400 mg 12/13/23 06:00 12/13/23 08:58 Celecoxib 200 Mg Cap PO 12/13/23 16:00 400 mg PREOP JOSE Administration Celecoxib 200 mg 12/13/23 20:00 Celecoxib 200 Mg Cap PO 01/12/24 19:59 BID JOSE Dexamethasone 4 mg 12/13/23 08:30 Dexamethasone 4 Mg Tab PO 12/14/23 08:31 DAILY JOSE Docusate Sodium 100 mg 12/13/23 07:36 Docusate Sodium 100 Mg Cap PO 01/12/24 07:35 BID PRN PRN Constipation Droperidol 0.625 mg 12/13/23 08:12 Droperidol 5 Mg/2 Ml Vial IVP 01/12/24 08:11 DIRECTED PRN Nausea Ephedrine Sulfate 0 mg 12/13/23 08:12 Ephedrine 25 Mg/5 Ml Syringe IVP 01/12/24 08:11 DIRECTED PRN Fentanyl 0 mcg 12/13/23 08:12 Fentanyl 100 Mcg/2 Ml Vial IVP 01/12/24 08:11 DIRECTED PRN Gabapentin 300 mg 12/13/23 06:00 12/13/23 08:58 Gabapentin 300 Mg Cap PO 12/13/23 16:00 300 mg PREOP JOSE Administration Gabapentin 300 mg 12/13/23 20:00 Gabapentin 300 Mg Cap PO 01/12/24 19:59 HS [facility] Hydromorphone HCl 0.5 mg 12/13/23 07:36 Hydromorphone 2 Mg/Ml Syr IVP 01/12/24 07:35 Q2H PRN PRN Hydromorphone HCl 0 mg 12/13/23 08:12 Hydromorphone 2 Mg/Ml Syr IVP 01/12/24 08:11 DIRECTED PRN Ringer's Solution 1,000 mls @ 80 mls/hr 12/13/23 06:00 12/13/23 10:11 IV 01/11/24 23:59 80 mls/hr [facility] Administration Cefazolin Sodium/Dextrose 2 gm in 50 mls @ 100 mls/hr 12/13/23 06:00 Ancef Duplex IVPB 12/13/23 16:00 PREOP JOSE Tranexamic Acid/Sodium Chloride 1,000 mg in 100 mls @ 600 mls/hr 12/13/23 06:00 IVPB 12/13/23 16:00 PREOP JOSE Tranexamic Acid/Sodium Chloride 1,000 mg in 100 mls @ 600 mls/hr 12/13/23 06:00 IVPB 12/13/23 16:00 TODAY JOSE Cefazolin Sodium/Dextrose 1 gm in 50 mls @ 100 mls/hr 12/13/23 08:00 Ancef Duplex IVPB 12/14/23 00:29 Q8H JOSE IV Miscellaneous Supplies 1 each 12/13/23 06:00 Iv Access IV 01/11/24 23:59 DIRECTED JOSE Naloxone HCl 0 mg 12/13/23 08:12 Naloxone 0.4 Mg/Ml Vial IVP 01/12/24 08:11 PRN PRN Ondansetron HCl 4 mg 12/13/23 07:36 Ondansetron 4 Mg/2 Ml Vial IVP 01/12/24 07:35 Q6H PRN PRN Nausea Oxycodone HCl 0 mg 12/13/23 07:36 Oxycodone 5 Mg Tab PO 01/12/24 07:35 Q3H PRN PRN Pain Pantoprazole Sodium 40 mg 12/14/23 07:30 Pantoprazole 40 Mg Tabcr PO 01/13/24 07:29 DAILY@0730 JOSE Polyethylene Glycol 17 gm 12/13/23 07:36 Polyethylene Glycol 3350 17 Gm Packet PO 01/12/24 07:35 BID PRN PRN Constipation Sodium Chloride 0 ml 12/13/23 06:00 Normal Saline Flush 10 Ml Syr IV 01/11/24 23:59 PRN PRN Sodium Chloride 0 ml 12/13/23 06:00 Normal Saline 10 Ml Vial IJ 01/11/24 23:59 DIRECTED PRN Sterile Water 0 ml 12/13/23 06:00 Water,Injection,Sterile 10 Ml Vial IJ 01/11/24 23:59 DIRECTED PRN PFSH Active Problems Active Problems: Problem Status Onset Code Bilateral primary osteoarthritis of knee M17.0 Medical History Medical History Hyperlipidemia Hypothyroid Hypertension Surgical History Surgical History Hx laparoscopic cholecystectomy History of total right hip arthroplasty Tobacco Smoking/Tobacco Use Status: Never Alcohol Alcohol Intake: never Substance Use Substance use: Never Substance use type: does not use Vital Signs and Lab Results Vital Signs Most Recent Vital Signs in EMR: Most Recent Vital Signs Temp Pulse Resp BP Pulse Ox 36.2 C L 74 16 183/96 H 98 12/13/23 08:32 12/13/23 08:32 12/13/23 08:32 12/13/23 09:13 12/13/23 08:32 Lab Results Blood Type / Crossmatch: No Data to Display Complete Blood Count: No Data to Display Complete Metabolic Panel: No Data to Display Liver Function Panel: No Data to Display Coagulation Panel: No Data to Display Cardiac Panel: No Data to Display Arterial Blood Gas: No Data to Display Venous Blood Gas: No Data to Display Pancreas Panel: No Data to Display Thyroid Panel: No Data to Display Infectious Disease: No Data to Display Blood Cultures: No Data to Display Toxicology Panel: No Data to Display Anesthesia Assessment and Plan Anesthesia History Personal History: No History of Anesthesia Complications Family History: No Family History of Anesthesia Complications Exercise Tolerance Exercise Tolerance: Metabolic Equivalents>4 Pertinent Negatives Pertinent Negatives: No Symptoms of GERD Cardiac & Pulmonary Exam Cardiac Exam: Normal S1/S2 Heart Sounds Pulmonary Exam: Clear Bilateral Breath Sounds Implantable Cardiac Device Does patient have a Pacemaker or an ICD?: No Airway Exam Known Difficult Airway: No Mallampati Class: 1 Mouth Opening: Normal (> 3cm) Thyromental Distance: Greater than 3 cm Neck Range of Motion: Full ROM Neck Circumference: Thick Teeth Condition: Normal Dentition ASA Classification ASA Score: ASA 2 Emergency Case?: No NPO Status NPO Status: NPO Clears >2 hours, Solids >8 hours Anesthesia Plan Resuscitation Status: Full Code Anesthesia Technique: Spinal Anesthesia Airway Planned: Natural Airway Pain Management: Surgeon and patient request nerve block Monitors Used: Standard Monitors
--- NOTE | 2023-12-13 11:11 | ANES.NERVE_ITS ---
Nerve Block Single Injection Procedure Date and Time Date Performed: 12/13/23 Procedure Start: 10:42 Location Where Procedure Performed Procedure Location: Day Surgery Unit Reason Performed: Postoperative Analgesia Requesting Provider: Nabil Gregory Timeout Performed Timeout Performed: Yes Monitoring Used ECG, Blood Pressure, SpO2 and See EMR for corresponding vital signs Sterility Sterility: Hand Hygiene, Surgical Cap, Surgical Mask, Sterile Gloves, Eye Protection and Chlorhexidine Sedation Given During Procedure Sedation Given (Indicate Dose Given): Versed IV Dose:: 3mg IVP Patient Mental Status Patient Mental Status: Sedate with meaningful communication Nerve Block 1st Nerve Block: Laterality: Left Block Type: Adductor Canal Ultrasound Image Saved?: Yes Needle / Catheter Used: 100mm SonoPlex II Local Anesthetic Bolus (Indicate Dose Given): Lidocaine used for local infiltration of skin, Injected in 3-5ml increments after negative blood aspiration, Bupivacaine 0.5% Dose:: 0.5%/15cc (75mg) and Exparel Dose:: 1.33%/5cc (65mg) Additives (Indicate Dose Given): Epinephrine to make 1:200,000 (5mcg/ml) Dose:: 100mcg and Decadron Dose:: 5mg PF Ultrasound: Sterile probe cover and gel used Nerve Stimulator: Not Used Paresthesia: None Procedure Tolerated: No Complications and Patient tolerated well Procedure Outcome: Successful Performed By: Diego Gao 2nd Nerve Block: Laterality: Right Block Type: Adductor Canal Ultrasound Image Saved?: Yes Needle / Catheter Used: 100mm SonoPlex II Local Anesthetic Bolus (Indicate Dose Given): Lidocaine used for local infiltration of skin, Injected in 3-5ml increments after negative blood aspiration, Bupivacaine 0.5% Dose:: 0.5%/15cc (75mg) and Exparel Dose:: 1. 33%/5cc (65mg) Additives (Indicate Dose Given): Epinephrine to make 1:200,000 (5mcg/ml) Dose:: 100mcg and Decadron Dose:: 5mg (PF) Ultrasound: Sterile probe cover and gel used Nerve Stimulator: Not Used Paresthesia: None Procedure Tolerated: No Complications and Patient tolerated well Procedure Outcome: Successful Performed By: Diego Gao
[2023-12-13] MEDS: ceFAZolin 2 GM/50 ML BAG IVPB (11:30)
[2023-12-13] MEDS: TRANEXAMIC ACID/SOD. CHL. 1,000 MG/100 ML BAG 600 MG IVPB ×2 (11:40→12:55)
--- NOTE | 2023-12-13 16:19 | W.ANESPOSTOP ---
Postoperative Evaluation Date, Time and Location Date Performed: 12/13/23 Time Performed: 15:20 Patient Location: PACU Vital Signs Most Recent Imported Vital Signs: Most Recent Vital Signs Temp Pulse Resp BP Pulse Ox 36.6 C 79 19 125/67 93 12/13/23 15:54 12/13/23 15:54 12/13/23 15:54 12/13/23 15:54 12/13/23 15:54 Pain Score Most Recent Pain Score: Most Recent Pain Score Pain Level 0 12/13/23 15:54 Assessment Mental Status: Awake (Alert & Oriented to Patient Baseline) Airway and Respiratory Function: Patent airway with normal (patient baseline) respiratory exam Cardiovascular Function: Hemodynamically Stable Hydration Status: Adequately Hydrated Nausea & Vomiting: No Nausea or Vomiting Pain: Pt. Denies Any Pain Peripheral Nerve Block: Regional nerve block not resolved at time of post operative discharge
--- NOTE | 2023-12-13 16:45 | IN_ITS ---
PT Notes Visit Reasons: Bilateral knee DJD Physical Therapy Inpatient Initial Evaluation Date: 12/13/2023 Referring Doctor: STACY Burt PT Orders: PT CONSULT: S/p Ortho surgery Precautions: Per Dr. Gregory, WBAT on B LE with AD. Patient Profile/Admitting Diagnosis: Chyna is a 58-year-old female with bilateral primary knee osteoarthritis and is status post bilateral total arthroplasties on postoperative day 0. PMHX: All Active Problems Bilateral primary osteoarthritis of knee (Acute) Medical History Hyperlipidemia Hypothyroid Hypertension Surgical History Hx laparoscopic cholecystectomy History of total right hip arthroplasty Social History/Home Situation: Lives with in a farm home with 3 steps to enter. Indeendent with all aspects of ADLs although had been having worsening difficulty with mobility, she used to pain from arthritis. Equipment Owned/DME: [employer] Subjective: Complained of lightheadedness right after sitting at edge of bed which lasted about 2-3 minutes. Agreeable to continue with mobility assessment as BP was WNL . Objective: General Observation: Supine in bed. THERESA wraps to B LE. Cryocuff to B knees. Mental Status: Alert and oriented as to person, place, time, and purpose. Able to pay attention, focus, and respond appropriately. Pain: 1-2/10 in B knees Vital Signs: Closely moniored by Nurse Avila and Nurse Ward ROM: Right Lower Extremity: Hip flexion WFL. Hip abduction WFL. Knee flexion 0-100 degrees. Ankle dorsiflexion WFL. Ankle plantarflexion WFL. Left Lower Extremity: Hip flexion WFL. Hip abduction WFL. Knee flexion 0-100 degrees. Ankle dorsiflexion WFL. Ankle plantarflexion WFL. Strength: Right Lower Extremity: Hip flexors 4/5. Hip abductors 4/5. Knee flexors 3-/5. Knee extensors 3+/5. Ankle dorsiflexors 5/5. Ankle plantarflexors 5/5. Left Lower Extremity: Hip flexors 4/5. Hip abductors 4/5. Knee flexors 3-/5. Knee extensors 3+/5. Ankle dorsiflexors 5/5. Ankle plantarflexors 5/5. Bed Mobility/Transfers: Minimal cueing provided for use of B hands as needed for support, movement sequence, AD management, and posture to reduce fall risk and minimize pain report Supine to sit minimal assist, HOB at 30 degrees Sit to stand minimal assist using FWW Stand to sit minimal assist using FWW Bed to toilet seat minimal assist using FWW Toilet seat to bedside recliner minimal assist using FWW Gait: Facilitated safe and correct performance of short distance, and room ambulation 25 feet + 25 feet using front-wheeled walker with contact-guard assist provided with step-to gait pattern without report of increased pain both knees. Initial lightheadedness felt seems to have resolved. Balance: Static Sitting: Normal Dynamic Sitting: Normal Static Standing: Fair Dynamic Standing: Fair Special Tests: Mobility Limitations Standardized Measure [facility] AM-PAC 6 clicks Basic Mobility Inpatient Short Form: Raw Score: 18 CMS Score: 47% deficit Informed Consent/Education: Patient was instructed in purpose of PT consult and plan of care. Agreeable to proceed with established PT POC to achieve personal goals. Trained patient with correct performance of exercises below to maximize motor control, joint flexibility, soft tissue extensibility of the B knee musculature: Access Code: [email or web address] URL: [email or web address] Date: 12/13/2023 Prepared by: Afia Tian Exercises - Supine Quad Set - 1 x daily - 7 x weekly - 1 sets - 10 reps - 5 hold - Supine Heel Slide - 1 x daily - 7 x weekly - 1 sets - 10 reps - 5 hold - Supine Ankle Pumps - 1 x daily - 7 x weekly - 1 sets - 10 reps - 5 hold - Small Range Straight Leg Raise - 1 x daily - 7 x weekly - 1 sets - 10 reps - 5 hold - Seated March - 1 x daily - 7 x weekly - 1 sets - 10 reps - 5 hold Assessment: Patient required the assistnce of one person and the use of front-wheeled walker for all mobility ADL performance as of time of evaluation. Still has numbness in posterior thigh, gluteal, and perineal areas. Minimal pain reported. reported lightheadedness upon sititng up but BP was WNL when taken by Nurse Sylvia. Patient presents with clinical signs and symptoms consistent with current/admitting diagnoses that have resulted to mobility limitations, gait instability, generalized weakness, and overall ADL decline as demonstrated by the following impairment level findings: 1. Decreased strength to knee and hip major muscle groups 2. Impaired sitting/standing balance 3. Impaired activity tolerance 4. Limitation of joint range of motion in B knee flexion Impairments are contributing to the following functional limitations: 1. Decline in bed mobility skills 2. Decline in transfer skills 3. Difficulty with ambulation without assistive device and physical assistance 4. Increased completion time for mobility ADL performance 5. Increased risk for falls 6. Difficulty with managing steps alone safely Patient is assessed as a 15288 moderate complexity based on the following: History: 58-year-old female with past medical history as indicated above Examination: Demonstrable impairment in strength, balance, and mobility level with underlying impairments and functional limitations as exhibited above as well as deficit score of 47% utilizing the [facility] Mobility Inpatient Short Form Presentation: Evolving Decision Makin moderate complexity Goals: Goals X1 week 1. Supine-Sit independent 2. Sit-Supine independent 3. Sit-Stand independent 4. Stand-Sit independent with FWW 5. Bed-Chair independent with FWW 6. Chair-Bed independent with FWW 7. Independent gait on level surface with use of FWW for at least 300 feet without report of pain nor dyspnea 8. Independent stair negotiation while holding onto B rails for at least 3 steps without report of pain nor dyspnea 9. Independent with home exercise program 10. Good static and dynamic standing balance/tolerance Plan of Care/Treatment Plan: 1-2x/day, 7 days/week x 1 week. Plan of care has been reviewed with the ANIMAL SCIENTIST providing the service under Physical Therapy direction. Initiate Physical Therapy intervention for pain management as needed, strengthening, bed mobility, transfers, gait, stairs, balance training, and use of assistive device. DISCHARGE RECOMMENDATIONS: Home when medically cleared by orthopedic surgeon. Recommend outpatient PT services in order to optimize functional mobility outcomes and facilitate return to independent community ambulation without an assistive device. TREATMENT CODE/TIME: 9716 2 x 20 minutes for 1 unit, 9753 0 x 20 minutes for 2 minutes (16:45?17:33). Thank you for the opportunity to participate in the care of this patient. Afia Tian PT, DPT, CLT [facility] [place], [place]
--- NOTE | 2023-12-13 17:17 | W.PM.OP ---
Date of service: 12/13/23 Time of Service: 11:30 Operative Note Operative Note DATE OF PROCEDURE: 12/13/23 PRE-OP DIAGNOSIS: Bilateral Knee Arthritis POST-OP DIAGNOSIS: same PROCEDURE: Bilateral Knee Arthroplasty SURGEON: Nabil Gregory HEAD BOOKKEEPER: Sylvia Bueno ANESTHESIA TYPE: Spinal Refer to Anesthesia Record ESTIMATED BLOOD LOSS: 300 PATHOLOGY: none sent COMPLICATIONS: None Patient was transported to: PACU Patient's condition: stable Implants: LEFT: 1. Depuy Attune Cementless Cruciate Retaining Femoral Component, Size 6 2. Depuy Attune Cementless Fixed Bearing Tibial Component, Size 5 3. Depuy Attune 6x7 CR/FB Poly 4. Depuy Attune Patellar Component, Size 32 RIGHT: 1. Depuy Attune Cementless Cruciate Retaining Femoral Component, Size 6 2. Depuy Attune Cementless Fixed Bearing Tibial Component, Size 5 3. Depuy Attune 6x10 CR/FB Poly 4. Depuy Attune Patellar Component, Size 32 Indications: I have seen Cate in clinic for symptoms of knee arthritis, confirmed with radiographic findings. She has exhausted nonoperative methods and was having significant limitations in daily function and desired better function and less pain. I discussed the technical details of a knee replacement. I explained the risks of the procedure to include, but not limited to, bleeding, infection, pain, stiffness, fracture, damage to nerves and vessels, damage to muscles and tendons, loosening, need for repeat procedure, blood clot and cardiopulmonary demise. Despite these risks, Cate elected to proceed. Findings: There was significant arthritis throughout both knees with what appears to be avascular necrosis about the left, lateral femur resulting in an area of soft bone and completely unstable cartilage. Both knees were incredibly stiff preoperatively but they maintain some stiffness throughout the surgery with significant difficulties and exposure. Procedure Description: Cate was greeted in the preoperative holding area where the correct side was identified and marked. The consent was reviewed with the patient and signed. The history and physical was updated. All questions were answered. Preoperative medications were administered: Acetaminophen 1000mg, Celebrex 400mg, and Gabapentin 300mg. An adductor canal block was then administered by the anesthesia team in the DSU. Cate was taken back to the operating room. A spinal anesthestic was then administered. The patient was placed into the supine position on the operating room table. A nonsterile tourniquet was placed high onto the leg but only used for cementing. Posts were placed for positioning during the procedure. All bony prominences were well padded. Prophylactic antibiotics in the form of Cefazolin were administered. 1g of Tranxemic Acid was given intravenously within 30 minutes of incision. Both legs were then prepped with ChloraPrep and draped with a bilateral extremity drape. Starting with the left knee, A second prep with Chloraprep was performed prior to application of Iodine impregnated skin protection. The right knee was left in the stockinette to be prepped prior to incision of the right side. A timeout to confirm correct identity, side and site, procedure, allergies, anesthesia, and medical concerns was performed. LEFT KNEE: With the knee in some flexion, a midline incision was made overlying the knee. Full thickness skin flaps were raised once the extensor mechanism was encountered. These were raised medially and laterally. Any bleeding was controlled with electrocautery. Once the extensor mechanism was fully exposed, a medial parapatellar arthrotomy was performed in a flexed position. All bleeding from the arthrotomy and the geniculate arteries was coagulated. A medial subperiosteal peel was performed with electrocautery to the midcoronal plane. The fat pad was removed while keeping the patellar tendon protected. The anterior distal femur synovium was removed for later visualization. The ACL and PCL were resected and the anterior horn of the lateral meniscus was transected. The knee was then flexed with the patella everted. Large osteophytes from the tibia were removed. Large osteophytes from the femur were removed. There was loose pieces of cartilage throughout the knee and a large elevated flap of cartilage from the left, lateral femur. This was removed and exposed some soft bone underlying it, likely some form of avascular necrosis. Exposure of the knee was challenging. Tissue is very stiff and contracted. Multiple iterations of releasing was performed in order to get basic exposure. I then utilized Ortholign. A starting pin was placed in the distal femur. Ortholign was attached to the distal femur, calibrated. This was set for a 0.5 degree varus cut with 3.5 degrees of flexion. A 9 mm cut guide was placed and the distal femoral cut guide was secured onto the end of the femur. The distal femoral cut guide was then held in position and pinned. With the soft tissues protected, the distal cut was performed. This was passed over a few times to ensure a planar cut. I then turned attention to the tibia. Attention was then turned to the tibia. The Ortholign guide was secured. This was also calibrated to the tibia and set for a 1.5 degree varus cut with 5 degrees of posterior slope. The sizing stylus was then utilized to make a fairly balanced cut of about 6 mm medially and 5 mm laterally. There is notable cartilage loss in this region. With the soft tissue protected a an oscillating saw was utilized to cut the proximal tibia. This was inspected to make sure there is no remnants of bone around the periphery. A second cut was performed to ensure planar cut given exposure difficulties with her stiffness. I then utilized the balancing device from [employer]. This was done first in extension where there is noted to be a balanced extension gap of about 18 mm. This was done secondly in flexion where the posterior cut was set to 7 mm. The distal femur was then sized. The anterior stylus was placed onto the lateral ridge of the anterior femur. This indicated a size 6 femur. The 4-in-1 cutting guide was placed. The spacer block was inserted underneath the cutting guide and stability was confirmed in 90 degrees of flexion. An miguelangel wing was used to confirm appropriate position of the anterior cut to avoid notching. This cutting guide was ensured to be flush on the cut surface and then pinned into place with headed pins. While protecting the soft tissues, quad tendon, and collateral ligaments, the anterior and posterior cuts were performed with a saw. The central two pins were removed and the posterior and anterior chamfers were cut next. The notch-cutting guide was placed. This was pinned to lateralize the femoral component as much as possible while keeping it flush on the cut surface. This was then pinned into position. A reciprocating saw was used to make the notch cut. A rasp smoothed the cut surfaces. The medial and lateral menisci were removed. A trial femoral component was then inserted, impacted down to the cut surfaces, and the lug holes were drilled. A provisional trial tibial component was placed and the knee was brought through range of motion. The polyethylene was trialed until there was good flexion and extension with excellent stability to the medial and lateral collaterals. The patella was tracking without thumbs. A size 7mm polyethylene component provided the best range of motion and stability with less than 2mm gapping with medial and lateral stress and full extension without significant hyperextension. The tibial cut surface was fully exposed. The tibia was then sized as a 5. The tibia had been previously marked during trialing to correspond to the center of the tibial component to help with rotation. The trial was aligned to this loida, approximately rotated to the medial 1/3rd of the tibial tubercle. The trial was pinned into place. The tibia was prepared with a reamer and a keel punch and lug holes. The knee was then brought into extension and the patella was measured as 19mm. Using the patellar clamp and cut guide, this was resected to a flat surface with at least 13mm of thickness remaining. The size 32 patella fit the best. This was oriented and then clamped into position. The lugs were drilled. The trial components were removed. The final components were opened on the back table. The periosteal and capsular tissues, especially posteriorly, around the knee were then systematically injected with a periarticular cocktail consisting of 246mg of Ropivacaine, 0.5mg of Epinephrine, 0.08mg of Clonidine, and 30mg of Ketorolac, diluted to 100cc. On the back table, with the implants opened, the cement was mixed. One batch of high viscosity cement was prepared with vacuum assistance. After the cement was ready a small amount was placed on the cut surface of the patella and the patellar button was clamped into position and held. While the cement was hardening, the cementless knee components were placed. Starting with the tibial component, the tibia was subluxed anteriorly and the lug holes of the component were lined up. The tibia was then impacted with an impactor and mallet until the tibial component was in contact with the tibia. The final polyethylene component was inserted. Then, the femoral component was inserted. The lug holes were aligned and the component was impacted into position. The knee was irrigated with Surgiphor Betadine solution. This was allowed to sit in the knee for 3 minutes and then it was irrigated out with saline. After the cement had finally cured, approximately 15min, the clamp was removed from the patella and the knee was taken through range of motion. The patella was tracking with a no-thumbs technique. The capsule was then reapproximated with a No. 1 Vicryl at multiple locations. The capsule was finally closed with a No. 2 Stratafix, barbed suture. The second dosing of 1g TXA was started. Deep tissues were then reapproximated with 0 Vicryl and 2-0 Vicryl. The skin was closed with a running 3-0 Monocryl in a subcuticular fashion. RIGHT KNEE: Attention was then turned to the right knee. The impervious stockinette was cut, knee exposed and prepped once again with ChloraPrep. Once this had dried an Ioban dressing was placed on top of the knee. Now with the knee in some flexion, a midline incision was made overlying the knee. Full thickness skin flaps were raised once the extensor mechanism was encountered. These were raised medially and laterally. Any bleeding was controlled with electrocautery. Once the extensor mechanism was fully exposed, a medial parapatellar arthrotomy was performed in a flexed position. All bleeding from the arthrotomy and the geniculate arteries was coagulated. A medial subperiosteal peel was performed with electrocautery to the midcoronal plane. The fat pad was removed while keeping the patellar tendon protected. The anterior distal femur synovium was removed for later visualization. The ACL and PCL were resected and the anterior horn of the lateral meniscus was transected. The knee was then flexed with the patella everted. Large osteophytes from the tibia were removed. Large osteophytes from the femur were removed. Once again, exposure was quite challenging. Her tissues were very stiff. Further extension of the quadriceps helped with mobilization of tissues. I then utilized Ortholign. A starting pin was placed in the distal femur. Ortholign was attached to the distal femur, calibrated. This was set for a 0.5 degree varus cut with 3.5 degrees of flexion. A 9 mm cut guide was placed and the distal femoral cut guide was secured onto the end of the femur. The distal femoral cut guide was then held in position and pinned. With the soft tissues protected, the distal cut was performed. This was passed over a few times to ensure a planar cut. I then turned attention to the tibia. Attention was then turned to the tibia. The Ortholign guide was secured. This was also calibrated to the tibia and set for a 1 degree varus cut with 5 degrees of posterior slope. The sizing stylus was then utilized to make a fairly balanced cut of about 6 mm medially and 3 mm laterally. There is notable cartilage loss in this region. With the soft tissue protected a an oscillating saw was utilized to cut the proximal tibia. This was inspected to make sure there is no remnants of bone around the periphery. A second cut was performed to ensure planar cut given exposure difficulties with her stiffness. I then utilized the balancing device from [employer]. This was done first in extension where there is noted to be a balanced extension gap of about 18 mm. This was done secondly in flexion where the posterior cut was set to 8 mm. The distal femur was then sized. The anterior stylus was placed onto the lateral ridge of the anterior femur. This indicated a size 6 femur. The 4-in-1 cutting guide was the placed. The posterior medial femur cut was evaluated and appeared of good thickness. The spacer block was inserted underneath the cutting guide and stability was confirmed in 90 degrees of flexion. An miguelangel wing was used to confirm appropriate position of the anterior cut to avoid notching. This cutting guide was ensured to be flush on the cut surface and then pinned into place with headed pins. While protecting the soft tissues, quad tendon, and collateral ligaments, the anterior and posterior cuts were performed with a saw. The central two pins were removed and the posterior and anterior chamfers were cut next. The notch-cutting guide was placed. This was pinned to lateralize the femoral component as much as possible while keeping it flush on the cut surface. This was then pinned into position. A reciprocating saw was used to make the notch cut. A rasp smoothed the cut surfaces. The medial and lateral menisci were removed. A trial femoral component was then inserted, impacted down to the cut surfaces, and the lug holes were drilled. A provisional trial tibial component was placed and the knee was brought through range of motion. The polyethylene was trialed until there was good flexion and extension with excellent stability to the medial and lateral collaterals. The patella was tracking without thumbs. A size 10mm polyethylene component provided the best range of motion and stability with less than 2mm gapping with medial and lateral stress and full extension without significant hyperextension. The tibial cut surface was fully exposed. The tibia was then sized as a 5. The tibia had been previously marked during trialing to correspond to the center of the tibial component to help with rotation. The trial was aligned to this loida, approximately rotated to the medial 1/3rd of the tibial tubercle. The trial was pinned into place. The tibia was prepared with a reamer and a keel punch and lug holes. The knee was then brought into extension and the patella was measured as 21mm. Using the patellar clamp and cut guide, this was resected to a flat surface with at least 13mm of thickness remaining. The size 32 patella fit the best. This was oriented and then clamped into position. The lugs were drilled. The trial components were removed. The final components were opened on the back table. The periosteal and capsular tissues, especially posteriorly, around the knee were then systematically injected with a periarticular cocktail consisting of 246mg of Ropivacaine, 0.5mg of Epinephrine, 0.08mg of Clonidine, and 30mg of Ketorolac, diluted to 100cc. On the back table, with the implants opened, the cement was mixed. One batch of high viscosity cement was prepared with vacuum assistance. After the cement was ready a small amount was placed on the cut surface of the patella and the patellar button was clamped into position and held. While the cement was hardening, the cementless knee components were placed. Starting with the tibial component, the tibia was subluxed anteriorly and the lug holes of the component were lined up. The tibia was then impacted with an impactor and mallet until the tibial component was in contact with the tibia. The final polyethylene component was inserted. Then, the femoral component was inserted. The lug holes were aligned and the component was impacted into position. The knee was irrigated with Surgiphor Betadine solution. This was allowed to sit in the knee for 3 minutes and then it was irrigated out with saline. After the cement had finally cured, approximately 15min, the clamp was removed from the patella and the knee was taken through range of motion. The patella was tracking with a no-thumbs technique. The capsule was then reapproximated with a No. 1 Vicryl at multiple locations. The capsule was finally closed with a No. 2 Stratafix, barbed suture. Deep tissues were then reapproximated with 0 Vicryl and 2-0 Vicryl. The skin was closed with a running 3-0 Monocryl in a subcuticular fashion. Both incisions were then reinforced with skin glue. A Mepilex silver dressing was applied along with a [id number] THERESA wrap to both knees. A CryoCuff was applied. Cate was transferred to the hospital bed without difficulty an suffering no apparent complication. Cate has a good prognosis. Physical therapy will start today and without restrictions, weight-bearing as tolerated. Aspirin 81mg BID will be used for DVT prophylaxis.
[2023-12-13] MEDS: ceFAZolin 1 GM/50 ML BAG IVPB (17:31)
[2023-12-13] MEDS: Celecoxib 200 MG CAP PO (21:02)
[2023-12-13] MEDS: Aspirin E.C. 81 MG TABEC PO (21:03)
[2023-12-14 00:16] VITALS: BP 128/85; PULSE 78; RESP 16; TEMP 36.5; O2SAT 95
[2023-12-14] MEDS: ceFAZolin 1 GM/50 ML BAG IVPB ×2 (02:40→09:43)
[2023-12-14] MEDS: Normal Saline Flush 10 ML SYR IV ×2 (02:41→09:43)
[2023-12-14] MEDS: oxyCODONE 5 MG TAB PO (03:22)
[2023-12-14 03:41] VITALS: BP 123/77; PULSE 75; RESP 18; TEMP 36.3; O2SAT 98
--- NOTE | 2023-12-14 07:31 | DSE_ITS ---
Date of service: 12/14/23 Time of Service: 12:00 Discharge Plan Disposition Patient Disposition: Home Condition: Good Discharge Details Reason For Visit: Bilateral knee DJD Admit Date/Time: 12/13/23 16:10 Admit Provider: Nabil Gregory Attending Provider: Nabil Gregory Primary Care Provider: Ana María Elias Hospital Course Hospital Course: Patient was admitted to the medical/surgical floor following the procedure. The surgery was tolerated well without any notable medical, surgical, or anesthetic complications. Mobilization began postoperatively. She was voiding spontaneously. Vitals were stable. Physical therapy worked with the patient and was cleared for discharge home. No acute medical issues. Pain was controlled on oral regimen. Home Meds and New Rx's Prescriptions: Continued atenolol 50 mg tablet 100 mg PO DAILY rosuvastatin 20 mg tablet 20 mg PO DAILY hydrochlorothiazide 25 mg tablet 25 mg PO DAILY levothyroxine 125 mcg capsule 125 mcg PO DAILY potassium chloride 20 mEq tablet extended release 20 meq PO DAILY No Action oxycodone 5 mg tablet 5 mg PO HS MDD 1 tab PRN (Reason: pain) Qty: 14 0RF acetaminophen 500 mg tablet 1,000 mg PO Q8H PRN Qty: 90 0RF Rx Instructions: Take two tablets up to every 8 hours as needed for pain gabapentin 300 mg capsule 300 mg PO QHS Qty: 30 0RF Rx Instructions: Take one tablet at bedtime celecoxib [Celebrex] 200 mg capsule 200 mg PO BID PRN (Reason: pain) Qty: 60 0RF Rx Instructions: Take one tablet twice daily for pain and inflammation Discharge Instructions Additional Instructions: Total Knee Discharge Instructions Activity: The most important activity is to walk and to work on gentle motion (both flexion and extension). You should try to take short walks a few times a day. It is important that when resting you work on keeping the knee straight. Avoid putting a pillow behind the knee as this will encourage flexion. Work on range of motion exercises as provided by Physical Therapy. - Start outpatient physical therapy within 2 weeks. - You should wear the ISA hose on both legs for 2 weeks. You may remove these at night. You may also use any compression sock in place of the ISA hose. - Utilize [employer] to review exercises, see videos on exercises and obtain basic information pertaining to your surgery and your recovery. Dressing: Remove the Darío wrap by 2 days after your surgery and put on the ISA stocking given to you from the hospital. Keep the surgical dressing (underneath the DARÍO wrap) in place for at least one week. After the first week it may be removed and replaced with light gauze and tape or nothing. The wound and dressing may get wet after 3 days but avoid soaking the dressing or otherwise it will need to be changed. Many people prefer covering the dressing with cling wrap (saran wrap) to minimize it from getting soaked. If it gets wet, just pat dry. If it starts to peel off then it will need to be changed. Medications: - You should take Tylenol and anti-inflammatory Celebrex as your primary pain control medications. If the Celebrex is too expensive or not covered, please call the office for another alternative (Advil/Ibuprofen or Naproxen/Aleve) - You have been prescribed a stronger pain medication Oxycodone for breakthrough pain, take as needed as prescribed. - You have also been prescribed a stomach acid reduction agent Pantoprozole to help reduce stomach acid and reflux. - You have been prescribed Gabapentin to take at night for restlessness and nerve pain. - You will be taking Aspirin 81mg twice a day for DVT prevention unless instructed otherwise. - You have also been prescribed Decadron to take to control post-operative nausea and pain. You will start this tomorrow. - If you have constipation you should take Colace (which has been prescribed) or Miralax (which is available [id number]). It takes most people 3-4 days to have a bowel movement. Follow-up: 2 weeks If you have any acute concerns or questions, please do not hesitate to contact the office at [phone]. You may contact Dr. Gregory with any questions after hours through the hospital at [phone] or on his cell phone at [phone]. Stand Alone Forms: Nursing Discharge Form Referrals: Nabil Gregory MD [ [facility] STAFF PHYSICIAN] - 12/26/23 11:15 am Ana María Elias PA [Primary Care Provider] - 12/21/23 10:40 am (Appointment is with Vandana Tubbs ) Activity:: Activity as Tolerated Equipment/Supplies:: Walker Diet:: As Tolerated Discharge Orders Discharge Orders: Discharge Order (Routine); Ordered 12/14/23 Ordered By: Nabil Gregory Discharge Data Discharge Date/Time-TO BE ENTERED AT DEPARTURE: 12/14/23 15:04 DS: Summary Time Spent with Patient providing and/or coordinating discharge services: Less than 30 minutes Status at Discharge Functional status at discharge: uses cane/walker Overall status at discharge: patient is progressing back to baseline Mental Status: mental status grossly normal Speech and Movement: speech and movement normal Mood: congruent mood Affect: normal affect Quality:SDOH Health Related Social Needs: No Data to Display Exam Narrative Exam Narrative: SItting up in the bed. NAD. AAOx3. BLE dressing c/d/i. +ADF/APF/EHL/FHL and SILT DP/SP/Tib bilaterally. Able to SLR bilaterally. Psych Mental Status: mental status grossly normal Speech and Movement: speech and movement normal Mood: congruent mood Affect: normal affect PFSH All Active Problems (Updated 12/26/23 @ 11:37 by Sohail Gill RN) History of total bilateral knee replacement (Acute 12/13/23) Medical History Hyperlipidemia Hypothyroid Hypertension Surgical History Hx laparoscopic cholecystectomy History of total right hip arthroplasty Social History Smoking/Tobacco Use Status: Never Smoking risk assessment performed?: Yes Alcohol Intake: never Drug use: Never Substance use type: does not use Housing: house Do you feel safe at home: Yes Do you feel safe in your relationship?: Yes Time Spent with Patient Time Spent with Patient: <45 minutes Time was spent: referring, communicating with other health customer care assistant, counseling the patient and care coordination
[2023-12-14 07:34] VITALS: BP 128/79; PULSE 80; RESP 18; TEMP 36.5; O2SAT 95
[2023-12-14] MEDS: Acetaminophen 500 MG TAB 1000 MG PO ×2 (07:51→13:23)
[2023-12-14] MEDS: Pantoprazole 40 MG TABCR PO (07:52)
[2023-12-14] MEDS: Celecoxib 200 MG CAP PO (07:52)
[2023-12-14] MEDS: Dexamethasone 4 MG TAB PO (07:53)
[2023-12-14] MEDS: Aspirin E.C. 81 MG TABEC PO (07:54)
[2023-12-14] MEDS: Atenolol 50 MG TAB 100 MG PO (09:06)
--- NOTE | 2023-12-14 09:58 | PTTR_ITS ---
PT Notes Visit Reasons: Bilateral knee DJD Physical Therapy Inpatient [facility] Note Date: 12/14/2023 Precautions: Per Dr. Gregory, WBAT on B LE with AD. Subjective: No new complaints. Pain at 1/10 in B knees. Objective: General Observation: Supine in bed. THERESA wraps to B LE. Cryocuff to B knees. Mental Status: Alert and oriented as to person, place, time, and purpose. Able to pay attention, focus, and respond appropriately. Pain: 1-2/10 in B knees Vital Signs: Closely monitored by Nurse Avila and Nurse Sylvia Bed Mobility/Transfers: Minimal cueing provided for use of B hands as needed for support, movement sequence, AD management, and posture to reduce fall risk and minimize pain report Supine to sit supervision Sit to stand supervision with FWW Stand to sit supervision with FWW Bed to toilet supervision with FWW Gait: Facilitated safe and correct performance of level surface ambulation covering 1 50 feet + 150 feet using front-wheeled walker with cstand by assist provided with step-through gait pattern without report of increased pain both knees. Denied headache, chest pain, and lightheadedness throughout session. Balance: Static Sitting: Normal Dynamic Sitting: Normal Static Standing: Fair Dynamic Standing: Fair Informed Consent/Education: Reviewed with patient correct performance of exercises below to maximize motor control, joint flexibility, soft tissue extensibility of the B knee musculature. Copy also furnished. Access Code: [email or web address] URL: [email or web address] Date: 12/13/2023 Prepared by: Afia Tian Exercises - Supine Quad Set - 1 x daily - 7 x weekly - 1 sets - 10 reps - 5 hold - Supine Heel Slide - 1 x daily - 7 x weekly - 1 sets - 10 reps - 5 hold - Supine Ankle Pumps - 1 x daily - 7 x weekly - 1 sets - 10 reps - 5 hold - Small Range Straight Leg Raise - 1 x daily - 7 x weekly - 1 sets - 10 reps - 5 hold - Seated March - 1 x daily - 7 x weekly - 1 sets - 10 reps - 5 hold Assessment: Mobility level much improved, pain report decreased allowing safer gait pattern of step-through.Did not need any physical assistance during mobility performance. Refitted FWW which patient appreciated. Plan of Care/Treatment Plan: 1-2x/day, 7 days/week x 1 week. Plan of care has been reviewed with the ROUNDING MACHINE OPERATOR providing the service under Physical Therapy direction. Initiate Physical Therapy intervention for pain management as needed, strengthening, bed mobility, transfers, gait, stairs, balance training, and use of assistive device. DISCHARGE RECOMMENDATIONS: Home when medically cleared by orthopedic surgeon. Recommend outpatient PT services in order to optimize functional mobility outcomes and facilitate return to independent community ambulation without an assistive device. TREATMENT CODE/TIME: 26193 x 30 minutes for 2 minutes, 66982 x 16 minutes for 1 unit (9:58?10:44).
[2023-12-14 10:50] VITALS: BP 127/83; PULSE 69; RESP 18; TEMP 36.3; O2SAT 95
--- NOTE | 2023-12-14 16:33 | PDOC.CMDIS ---
Date of service: 12/14/23 Time of Service: 16:33 LACE Index Scoring Tool Questions: Length of Stay (in days): 1 Was the patient admitted via the E.D.?: No E.D. Visits: 0 Answers: Total Score: 1 Risk of Readmission: Low Risk Care Management Discharge Plan Reason for Hospitalization: Bilateral Knee DJD, replacements Discharge Plan: Cate will return home when ready per MD, she verbalizes that in a few weeks she will resume outpatient PT at [facility] in [place]. She reviews discharge plan and shares no concerns at this time. Her , Cliff will transport her via private vehicle when ready. Cate will follow up with Ortho, her PCP and her plan of care as prescribed. Patient/Family Education Needs: Review discharge instructions and self care needs upon discharge. SDOH Health Related Social Needs: No Data to Display
== END 2023-12-14 15:04 | disposition home or self-care (01) ==
LOC: MS 16:10
PROVIDERS: Admitting Provider Student in an Organized Health Care Education/Training Program; PCP Physician Assistant Medical; Visit Provider Student in an Organized Health Care Education/Training Program
PROC: 0SRC0JZ Replacement of Right Knee Joint with Synthetic Substitute, Open Approach (ICD-10-PCS; CPT 27447; principal; 2023-12-13 10:15)
DX: M17.0 Bilateral primary osteoarthritis of knee (principal); M87.852 Other osteonecrosis, left femur; I10 Essential (primary) hypertension; E03.9 Hypothyroidism, unspecified; E78.5 Hyperlipidemia, unspecified; Z96.641 Presence of right artificial hip joint; Z79.899 Other long term (current) drug therapy
CPT/HCPCS: 27447; 20985; 96365; 96366; 97110; 97162; 97530; C1776; C9290; G0378; J0171; J0665; J0690; J1100; J2001; J2250; J2371; J2405; J2704; J8540

== ENCOUNTER 2023-12-26 12:32 | Outpatient (CLI) | payer MEDICAID, SELFPAY ==
--- NOTE | 2023-12-26 11:30 | DI.RAD_ITS ---
Exam(s) XR KNEE LT 1V XR STANDING ALIGNMENT XR KNEE RT 1V EXAM: XR STANDING ALIGNMENT CLINICAL HISTORY: 1ST POST OP S/P BILAT TKAS. TECHNIQUE: 2D digital imaging was performed. Standing AP views were performed from the pelvis throu gh the ankles. COMPARISON: CR XR STANDING ALIGNMENT from 09/12/2023 CR XR KNEE RT 1V from 12/26/2023 CR XR KNEE LT 1V from 12/26/2023 FINDINGS: BONES: No acute fracture is present. No bony destructive lesion is seen. Leg length discrepancy: The left iliac crest projects from the approximately 2 cm superior to the rig ht. The left ischial tuberosity projects approximately 5 millimeters superior to the right. JOINTS: Knees: Bilateral total knee prostheses has been placed since the prior exam. The alignment appears satisfactory. There are no abnormal surrounding bony lucencies. The ankle joints are unremarkable. Hips: Left hip joint space is maintained. There is a right total hip prosthesis which appears unchan ged. SOFT TISSUE: Mildly edema. IMPRESSION: Bilateral total knee prostheses. Overall leg length discrepancy. DATA REPOSITORY: RADIATION DOSE DELIVERED:
== END 2023-12-26 12:33 | disposition home or self-care (01) ==
LOC: DIORS 12:33
PROVIDERS: PCP Physician Assistant Medical; Visit Provider Student in an Organized Health Care Education/Training Program
DX: Z96.653 Presence of artificial knee joint, bilateral (principal)
CPT/HCPCS: 73560; 77073

== ENCOUNTER 2024-04-13 14:40 | Outpatient (REF) | payer MEDICAID, SELFPAY ==
[2024-04-13 20:18] LABS: ALT 47 U/L (14-59); AST 25 U/L (15-37); Albumin 4.1 g/dL (3.4-5.0); Alkaline Phosphatase 68 U/L (46-116); Anion Gap 8.5 mmol/L (3-11); BUN 24 mg/dL (7-18); Bilirubin, Total 0.38 mg/dL (0.2-1.0); CO2 30.5 mmol/L (21.0-32.0); CREATININE 1.5 mg/dL (0.55-1.02); Calcium 9.7 mg/dL (8.5-10.1); Calculated LDL 95 mg/dL (<100); Chloride 107 mmol/L (98-107); Cholesterol 184 mg/dL (<200); Estimated GFR 39.65 (mL/min/1.73m2); Glucose 106 mg/dL (74-106); HDL Cholesterol 64 mg/dL (40-60); Potassium 3.3 mmol/L (3.5-5.1); Sodium 146 mmol/L (136-145); TSH (W/Ref FT4) 0.46 uIU/mL (0.36-3.74); Total Protein 7.2 g/dL (6.4-8.2); Triglyceride 126 mg/dL (<150)
== END 2024-04-13 14:41 | disposition home or self-care (01) ==
LOC: NCHCN 14:40
PROVIDERS: PCP Physician Assistant Medical; Visit Provider Physician Assistant Medical
DX: E78.5 Hyperlipidemia, unspecified (principal); E03.9 Hypothyroidism, unspecified
CPT/HCPCS: 80053; 80061; 84443

== ENCOUNTER 2024-05-11 11:07 | Outpatient (CLI) | payer MEDICAID, SELFPAY ==
[2024-05-11 11:44] LABS: Anion Gap 8.9 mmol/L (3-11); BUN 19 mg/dL (7-18); CO2 30.1 mmol/L (21.0-32.0); CREATININE 0.8 mg/dL (0.55-1.02); Calcium 9.6 mg/dL (8.5-10.1); Chloride 104 mmol/L (98-107); Glucose 97 mg/dL (74-106); Potassium 3.6 mmol/L (3.5-5.1); Sodium 143 mmol/L (136-145)
== END 2024-05-11 11:08 | disposition home or self-care (01) ==
LOC: LBO 11:08
PROVIDERS: PCP Physician Assistant Medical; Visit Provider Physician Assistant Medical
DX: R79.89 Other specified abnormal findings of blood chemistry (principal)
CPT/HCPCS: 36415; 80048

== ENCOUNTER 2024-09-12 16:42 | Outpatient (REF) | payer MEDICAID, SELFPAY ==
[2024-09-12 16:45] LABS: Anion Gap 7.4 mmol/L (3-11); BUN 20 mg/dL (7-18); CO2 31.6 mmol/L (21.0-32.0); CREATININE 0.8 mg/dL (0.55-1.02); Calcium 9.7 mg/dL (8.5-10.1); Chloride 105 mmol/L (98-107); Glucose 129 mg/dL (74-106); Potassium 3.3 mmol/L (3.5-5.1); Sodium 144 mmol/L (136-145)
== END 2024-09-12 16:43 | disposition home or self-care (01) ==
LOC: NCHCN 16:42
PROVIDERS: PCP Physician Assistant Medical; Visit Provider Physician Assistant Medical
DX: I10 Essential (primary) hypertension (principal)
CPT/HCPCS: 80048

== ENCOUNTER 2024-10-29 09:32 | Emergency (ER) | payer MEDICAID, SELFPAY ==
[2024-10-29] VITALS (37 sets, daily range): BP systolic 129–177; BP diastolic 68–105; PULSE 71–80; RESP 13–33; TEMP 36.7; O2SAT 97–99
[2024-10-29 10:18] LABS: Abs Immature Grans 0.03 10^3/uL (0.0-0.06); Absolute Basophil Count 0.03 10^3/uL (0.0-0.2); Absolute Eosinophil Count 0.13 10^3/uL (0.0-0.7); Absolute Lymphocyte Count 1.01 10^3/uL (1.2-3.4); Absolute Monocyte Count 0.84 10^3/uL (0.1-0.8); Absolute Neutrophil Count 7.76 10^3/uL (1.2-6.7); Basophils % 0.3 %; Eosinophils % 1.3 %; HCT 40.3 % (36.0-46.0); HGB 14.2 g/dL (11.2-15.7); Immature Grans % 0.3 %; Lymphocytes % 10.3 %; MCH 32.5 pg (27.0-33.0); MCHC 35.2 % (32.0-36.0); MCV 92 fL (80-95); Monocytes % 8.6 %; Neutrophils % 79.2 %; Platelet Count 209 10^3/uL (130-400); RBC 4.37 10^6/uL (3.93-5.22); RDW-SD 44.3 fL
[2024-10-29 10:20] LABS: ESR 24 mm/hr (0-30)
--- NOTE | 2024-10-29 10:26 | DI.RAD_ITS ---
Exam(s) XR HAND RT COMPLETE EXAM: XR HAND RT COMPLETE CLINICAL HISTORY: pain and swelling hand, predemoninantly 1st mtp. TECHNIQUE: 2D digital imaging was performed. Three views. 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 No acute fracture is present. No bony destructive lesion is seen. JOINTS: No dislocation present. Mild degenerative changes. SOFT TISSUE: Dorsal soft tissue swelling. No foreign body or abnormal gas collection. IMPRESSION: No evidence of fracture or foreign body. Soft tissue swelling. DATA REPOSITORY: RADIATION DOSE DELIVERED:
[2024-10-29] MEDS: Acetaminophen 325 MG TAB 650 MG PO (10:27)
[2024-10-29] MEDS: predniSONE 20 MG TAB 40 MG PO (10:28)
[2024-10-29] MEDS: Ibuprofen 600 MG TAB PO (10:28)
--- NOTE | 2024-10-29 10:30 | RT.EKG_ITS ---
APPROVED REPORT Exam: Resting ECG Reason for Exam: hypokalemia Patient Location: E HR:70 bpm ECG Measurements Heart Rate 70 AXIS MA 233 P 22 QRSd 112 QRS 38 QT 395 T -6 QTc 427 Conclusion Sinus rhythm, rate 70 1st degree HB, MA interval 233ms No STEMI T wave inversion lead III No priors available for comparison
[2024-10-29 10:33] LABS: C-Reactive Protein 5.22 mg/dL (<or=0.5); Uric Acid 4.2 mg/dL (2.6-6.0)
[2024-10-29 10:36] LABS: ALT 30 U/L (14-59); AST 16 U/L (15-37); Albumin 3.8 g/dL (3.4-5.0); Alkaline Phosphatase 76 U/L (46-116); BUN 21 mg/dL (7-18); Bilirubin, Total 0.6 mg/dL (0.2-1.0); CREATININE 0.9 mg/dL (0.55-1.02); Calcium 9.6 mg/dL (8.5-10.1); Chloride 102 mmol/L (98-107); Estimated GFR 72.73 (mL/min/1.73m2); Glucose 112 mg/dL (74-106); Sodium 143 mmol/L (136-145); Total Protein 8.1 g/dL (6.4-8.2)
[2024-10-29 10:37] LABS: Potassium 2.3 mmol/L (3.5-5.1)
[2024-10-29 10:51] LABS: Lab Add On Test DONE
[2024-10-29 10:53] LABS: Magnesium 1.9 mg/dL (1.8-2.4)
[2024-10-29] MEDS: POTASSIUM CHLORIDE 20 MEQ/100 ML BAG 50 MEQ IV_INF (11:13)
[2024-10-29] MEDS: Potassium Chloride Liquid 20 MEQ PKT 40 MEQ PO (11:48)
[2024-10-29] MEDS: Potassium Chloride 20 MEQ TABCR 40 MEQ PO (12:11)
--- NOTE | 2024-10-29 13:00 | RT.EKG_ITS ---
APPROVED REPORT Exam: Resting ECG Reason for Exam: hypokalemia Patient Location: E HR:79 bpm ECG Measurements Heart Rate 79 AXIS MA 242 P 73 QRSd 110 QRS 86 QT 393 T 2 QTc 451 Conclusion Sinus rhythm, rate 79 1st degree HB, unchanged from prior No STEMI
[2024-10-29 13:52] LABS: Potassium 2.6 mmol/L (3.5-5.1)
--- NOTE | 2024-10-29 15:24 | W.ED.GENAD ---
Discharge Plan Disposition Patient Disposition: Home Condition: Stable Discharge Details Clinical Impression: Hypokalemia, Hand swelling Primary Care Provider: Ana María Elias ED Provider: Vangie Angeles Home Meds and New Rx's Prescriptions: New potassium chloride 20 mEq tablet,ER particles/crystals 40 meq PO BID Qty: 30 0RF Rx Instructions: take two tablets tonight, followed by 2 tabs, every 8 hours for the next 24 hours, followed by 2 tabs twice daily for 3 days prednisone 20 mg tablet 40 mg PO ONCE Qty: 10 0RF cephalexin 500 mg capsule 500 mg PO Q6H 7 Days Qty: 28 0RF Continued atenolol 50 mg tablet 100 mg PO DAILY rosuvastatin 20 mg tablet 20 mg PO DAILY hydrochlorothiazide 25 mg tablet 25 mg PO DAILY levothyroxine 125 mcg capsule 125 mcg PO DAILY potassium chloride 20 mEq tablet extended release 20 meq PO DAILY acetaminophen 500 mg tablet 1,000 mg PO Q8H PRN Qty: 90 0RF Rx Instructions: Take two tablets up to every 8 hours as needed for pain amlodipine 5 mg tablet 5 mg PO ONCE Patient Comments: TAKE ONE TABLET BY MOUTH EVERY DAY Discharge Instructions Instructions: Hypokalemia, Overuse Injuries (DC) Additional Instructions: Call your doctor to schedule an appointment for Tuesday to have your labs rechecked Take your potassium 40 mg tonight 40 mg 3 times daily tomorrow 40 mg twice a day for the following 3 days Take the Keflex tomorrow if you still have significant pain and swelling otherwise continue to take the prednisone and rest Take Tylenol as needed for pain and you may apply Voltaren gel Elevate your hand is much as possible It is very important that you take your potassium so if you are unable to do so please return to the emergency department for reassessment Stop your hydrochlorothiazide for now Referrals: Ana María Elias PA [Primary Care Provider] - 3 days Discharge Data Discharge Date/Time-TO BE ENTERED AT DEPARTURE: 10/29/24 14:35 HPI General Date/Time Provider Initiated Documentation: 10/29/24 09:49. HPI Narrative: 59-year-old female with hypokalemia, hyperlipidemia, and hypothyroidism presents with right hand swelling starting several days ago in her thumb. Swelling began after weed whacking. Ibuprofen and Voltaren gel have not improved symptoms. No fever, chills, chest pain, shortness of breath, palpitations, or other concerns. Reports frequent low potassium levels, currently taking OTC potassium supplement but not prescribed one. Related Data Home Medications ?Medication ?Instructions ?Recorded ?Confirmed atenolol 50 mg tablet 100 mg PO DAILY 09/12/23 10/29/24 hydrochlorothiazide 25 mg tablet 25 mg PO DAILY 09/12/23 10/29/24 levothyroxine 125 mcg capsule 125 mcg PO DAILY 09/12/23 10/29/24 potassium chloride 20 mEq 20 meq PO DAILY 09/12/23 10/29/24 tablet,extended release rosuvastatin 20 mg tablet 20 mg PO DAILY 09/12/23 10/29/24 acetaminophen 500 mg tablet 1,000 mg (2 x 500 mg) PO Q8H PRN 12/30/23 10/29/24 pain #90 tabs amlodipine 5 mg tablet 5 mg PO ONCE 10/29/24 10/29/24 cephalexin 500 mg capsule 500 mg PO Q6H 7 days #28 caps 10/29/24 potassium chloride 20 mEq 40 meq (2 x 20 mEq) PO BID #30 tabs 10/29/24 tablet,extended release(part/cryst) prednisone 20 mg tablet 40 mg (2 x 20 mg) PO ONCE #10 tabs 10/29/24 Previous Rx's ?Medication ?Instructions ?Recorded acetaminophen 500 mg tablet 1,000 mg (2 x 500 mg) PO Q8H PRN 12/30/23 pain #90 tabs cephalexin 500 mg capsule 500 mg PO Q6H 7 days #28 caps 10/29/24 potassium chloride 20 mEq 40 meq (2 x 20 mEq) PO BID #30 tabs 10/29/24 tablet,extended release(part/cryst) prednisone 20 mg tablet 40 mg (2 x 20 mg) PO ONCE #10 tabs 10/29/24 Allergies Allergy/AdvReac Type Severity Reaction Status Date / Time codeine AdvReac Other (See Verified 03/15/24 12:56 Comment) General Stated Complaint: GenMedical LIBERTAD: 4 Exam Narrative Exam Narrative: General Appearance: Alert and oriented, no acute distress. Vital signs: Within normal limits. HEENT: Within normal limits. Respiratory: Within normal limits. Cardiovascular: Gastrointestinal: Genitourinary: Lymphatic: No lymphangitis. Back, Musculoskeletal: Extremities: Marked swelling and redness in right hand thumb, mildly decreased range of motion. Capillary refill and distal pulses intact. Skin: Warm and dry, no rash. Neurological: Normal. Psychiatric: Other observations: Course Vital Signs Vital signs: Vital Signs Temperature 36.7 C 10/29/24 09:40 Pulse 78 10/29/24 09:40 Respiratory Rate 18 10/29/24 09:40 Blood Pressure 157/105 H 10/29/24 09:40 Pulse Oximetry 99 10/29/24 09:40 Temperature 36.7 C 10/29/24 09:40 Temperature Source Temporal Artery Scan 10/29/24 09:40 Pulse 73 10/29/24 14:15 Pulse 79 10/29/24 14:21 Respiratory Rate 23 10/29/24 14:21 Respiratory Effort Normal 10/29/24 09:45 Respiratory Depth Normal 10/29/24 09:45 Respiratory Pattern Normal 10/29/24 09:45 Blood Pressure 134/75 10/29/24 14:15 Blood Pressure Mean 95 10/29/24 14:15 Blood Pressure Position Sitting 10/29/24 09:45 Pulse Oximetry 98 10/29/24 12:17 Oxygen Delivery Method Room Air 10/29/24 09:45 Lab/Test Results Lab/Test Results: Laboratory Tests Range/Units 10/29/24 10/29/24 10/29/24 10:09 10:42 13:15 WBC (4.4-10.8) 10^3/uL 9.80 RBC (3.93-5.22) 10^6/uL 4.37 Hgb (11.2-15.7) g/dL 14.2 Hct (36.0-46.0) % 40.3 MCV (80-95) fL 92 MCH (27.0-33.0) pg 32.5 MCHC (32.0-36.0) % 35.2 RDW (11.7-14.6) % 13.0 Plt Count (130-400) 10^3/uL 209 MPV (8.0-11.0) fL 11.0 Immature Gran % % 0.3 Neutrophils % % 79.2 Lymphocytes % % 10.3 Monocytes % % 8.6 Eosinophils % % 1.3 Basophils % % 0.3 Nucleated RBC % (0.0-0.3) % 0.0 Absolute Neutrophils (1.2-6.7) 10^3/uL 7.76 H Absolute Lymphocytes (1.2-3.4) 10^3/uL 1.01 L Absolute Monocytes (0.1-0.8) 10^3/uL 0.84 H Absolute Eosinophils (0.0-0.7) 10^3/uL 0.13 Absolute Basophils (0.0-0.2) 10^3/uL 0.03 ESR (0-30) mm/hr 24 Sodium (136-145) mmol/L 143 Potassium (3.5-5.1) mmol/L 2.3 L* 2.6 L* Chloride (98-107) mmol/L 102 Carbon Dioxide (21.0-32.0) mmol/L 30.0 Anion Gap (3-11) mmol/L 11.0 BUN (7-18) mg/dL 21 H Creatinine (0.55-1.02) mg/dL 0.9 Est GFR (CKD-EPI 2020) (mL/min/1.73m2) 72.73 Glucose (74-106) mg/dL 112 H Uric Acid (2.6-6.0) mg/dL 4.2 Calcium (8.5-10.1) mg/dL 9.6 Magnesium (1.8-2.4) mg/dL 1.9 Total Bilirubin (0.2-1.0) mg/dL 0.6 AST (15-37) U/L 16 ALT (14-59) U/L 30 Alkaline Phosphatase (46-116) U/L 76 C-Reactive Protein (<or=0.5) mg/dL 5.22 H Total Protein (6.4-8.2) g/dL 8.1 Albumin (3.4-5.0) g/dL 3.8 Add-On Test Request DONE Medical Decision Making Laboratory: Potassium 2.3, improved to 2.6 after i.v. 20 mEq and p.o. 40 mEq potassium. CBC without acute leukocytosis. Imaging: Right hand X-ray shows no acute abnormality. EKG: Mildly prolonged IA interval. Initial Assessment: 59-year-old female with history of hypokalemia, hyperlipidemia, hypothyroidism, presents with right hand swelling which started several days prior to arrival in her thumb after weed whacking. No fever, chills, chest pain, shortness of breath, palpitations. Alert and oriented, in no acute distress. Marked swelling to right hand with redness overlying thumb, mildly decreased range of motion. Cap refill intact, distal pulses intact, no lymphangitis. ED Course: - X-ray shows no acute abnormalities (read by me). - Diagnostic labs reassuring including CBC without acute leukocytosis. - Potassium quite low at 2.3. - EKG mildly prolonged IA interval, no prior to compare. - Potassium i.v. 20 mEq given and p.o. 40 mEq given. - Repeat potassium improved to 2.6. - Another 40 mEq of potassium to be taken this evening. - Encouraged to discontinue hydrochlorothiazide temporarily. - Touch base with patient's primary care physician for follow-up. - Start prednisone. - Apply thumb spica. - Prescription for Keflex if fevers develop. - Return for reassessment if unable to tolerate oral potassium. Final Assessment: Right hand swelling likely arthritis with marked swelling and redness in thumb, mildly decreased range of motion. Hypokalemia improved to 2.6 after i.v. and p.o. administration. Low suspicion of infection. Treatment includes prednisone, thumb spica, and Keflex if fevers develop. Discontinue hydrochlorothiazide temporarily and follow up with PCP for alternative blood pressure medication. Recheck potassium on Tuesday. Clinical Impression: - Right hand swelling likely arthritis. - Hypokalemia. Disposition: - Follow-Up: Recheck potassium on Tuesday. Follow up with PCP for alternative blood pressure medication. MDM Components Evaluation: - Number of Differential Diagnoses or Management Options: Right hand swelling likely arthritis, hypokalemia. - Amount and Complexity of Data Reviewed: X-ray, CBC, EKG, potassium levels. - Risk of Complication and Morbidity or Mortality: Risk of complications from hypokalemia and potential infection in right hand swelling. Initial Assessment: 59-year-old female with history of hypokalemia, hyperlipidemia, hypothyroidism, presents with right hand swelling which started several days prior to arrival in her thumb after weed whacking. No fever, chills, chest pain, shortness of breath, palpitations. Alert and oriented, in no acute distress. Marked swelling to right hand with redness overlying thumb, mildly decreased range of motion. Cap refill intact, distal pulses intact, no lymphangitis. ED Course: - X-ray shows no acute abnormalities (read by me). - Diagnostic labs reassuring including CBC without acute leukocytosis. - Potassium quite low at 2.3. - EKG mildly prolonged IA interval, no prior to compare. - Potassium i.v. 20 mEq given and p.o. 40 mEq given. - Repeat potassium improved to 2.6. - Another 40 mEq of potassium to be taken this evening. - Encouraged to discontinue hydrochlorothiazide temporarily. - Touch base with patient's primary care physician for follow-up. - Start prednisone. - Apply thumb spica. - Prescription for Keflex if fevers develop. - Return for reassessment if unable to tolerate oral potassium. Final Assessment: Right hand swelling likely arthritis with marked swelling and redness in thumb, mildly decreased range of motion. Hypokalemia improved to 2.6 after i.v. and p.o. administration. Low suspicion of infection. Treatment includes prednisone, thumb spica, and Keflex if fevers develop. Discontinue hydrochlorothiazide temporarily and follow up with PCP for alternative blood pressure medication. Recheck potassium on Tuesday. Clinical Impression: - Right hand swelling likely arthritis. - Hypokalemia. Disposition: - Follow-Up: Recheck potassium on Tuesday. Follow up with PCP for alternative blood pressure medication. MDM Components Evaluation: - Number of Differential Diagnoses or Management Options: Right hand swelling likely arthritis, hypokalemia. - Amount and Complexity of Data Reviewed: X-ray, CBC, EKG, potassium levels. - Risk of Complication and Morbidity or Mortality: Risk of complications from hypokalemia and potential infection in right hand swelling. Initial Assessment: 59-year-old female with history of hypokalemia, hyperlipidemia, hypothyroidism, presents with right hand swelling which started several days prior to arrival in her thumb after weed whacking. No fever, chills, chest pain, shortness of breath, palpitations. Alert and oriented, in no acute distress. Marked swelling to right hand with redness overlying thumb, mildly decreased range of motion. Cap refill intact, distal pulses intact, no lymphangitis. Quality:[facility] Health Related Social Needs: No Data to Display Critical Care Time Critical Care Time Attestation: 35 minutes of medical care time secondary to acute hypokalemia requiring IV potassium supplementation EKG supplementation telemetry monitoring p.o. supplemental potassium diagnostic lab interpretation review PFSH All Active Problems Hand swelling (Acute) Hypokalemia (Acute) History of total bilateral knee replacement (Acute 12/13/23) Medical History Hyperlipidemia Hypothyroid Hypertension Surgical History Hx laparoscopic cholecystectomy History of total right hip arthroplasty Social History Smoking/Tobacco Use Status: Never Smoking risk assessment performed?: Yes Alcohol Intake: never Drug use: Never Substance use type: does not use Housing: house Do you feel safe at home: Yes Do you feel safe in your relationship?: Yes
== END 2024-10-29 14:35 | disposition home or self-care (01) ==
PROVIDERS: Emergency Provider Physician Assistant; PCP Physician Assistant Medical
DX: R22.32 Localized swelling, mass and lump, left upper limb (principal); E87.6 Hypokalemia; I10 Essential (primary) hypertension; E78.5 Hyperlipidemia, unspecified; E03.9 Hypothyroidism, unspecified
CPT/HCPCS: 36415; 80053; 85652; 93005; 96374; 99285; 73130; 83735; 84132; 84550; 85025; 86140; 93010; 99284; J3480; J7512

== ENCOUNTER 2024-10-30 18:42 | Emergency (ER) | payer MEDICAID, SELFPAY ==
[2024-10-30 18:44] VITALS: BP 165/109; PULSE 81; RESP 16; TEMP 36.5; O2SAT 98
[2024-10-30 18:46] VITALS: BP 165/109; PULSE 81; RESP 16; TEMP 36.5; O2SAT 98
[2024-10-30 19:17] LABS: Abs Immature Grans 0.08 10^3/uL (0.0-0.06); Absolute Basophil Count 0.02 10^3/uL (0.0-0.2); Absolute Lymphocyte Count 0.99 10^3/uL (1.2-3.4); Absolute Monocyte Count 0.97 10^3/uL (0.1-0.8); Absolute Neutrophil Count 13.15 10^3/uL (1.2-6.7); Basophils % 0.1 %; ESR 44 mm/hr (0-30); HCT 36.9 % (36.0-46.0); HGB 12.9 g/dL (11.2-15.7); Immature Grans % 0.5 %; Lymphocytes % 6.5 %; MCH 32.3 pg (27.0-33.0); MCV 93 fL (80-95); MPV 10.9 fL (8.0-11.0); Monocytes % 6.4 %; Neutrophils % 86.5 %; Platelet Count 226 10^3/uL (130-400); RBC 3.99 10^6/uL (3.93-5.22); RDW 13.2 % (11.7-14.6); RDW-SD 44.5 fL
--- NOTE | 2024-10-30 19:24 | ED.GENADUL_ITS ---
Discharge Plan Disposition Patient Disposition: Home Discharge Details Clinical Impression: Hand swelling, Hypokalemia Primary Care Provider: Ana María Elias ED Provider: Selene [facility] Home Meds and New Rx's Prescriptions: No Action atenolol 50 mg tablet 100 mg PO DAILY rosuvastatin 20 mg tablet 20 mg PO DAILY hydrochlorothiazide 25 mg tablet 25 mg PO DAILY levothyroxine 125 mcg capsule 125 mcg PO DAILY potassium chloride 20 mEq tablet extended release 20 meq PO DAILY acetaminophen 500 mg tablet 1,000 mg PO Q8H PRN Qty: 90 0RF Rx Instructions: Take two tablets up to every 8 hours as needed for pain amlodipine 5 mg tablet 5 mg PO ONCE Patient Comments: TAKE ONE TABLET BY MOUTH EVERY DAY potassium chloride 20 mEq tablet,ER particles/crystals 40 meq PO BID Qty: 30 0RF Rx Instructions: take two tablets tonight, followed by 2 tabs, every 8 hours for the next 24 hours, followed by 2 tabs twice daily for 3 days prednisone 20 mg tablet 40 mg PO ONCE Qty: 10 0RF cephalexin 500 mg capsule 500 mg PO Q6H 7 Days Qty: 28 0RF Discharge Instructions Additional Instructions: Call [facility] orthopedics first thing in the morning to schedule your follow-up appointment. Continue taking your prednisone and Keflex as prescribed. You received a one- time loading dose of antibiotics Continue potassium supplementation Keep the splint in place for comfort. Please remove it if you notice any color change/coolness/loss of sensation to your fingers. Return to emergency care if develop new fever/chills, worsening redness, general malaise, loss of sensation in your fingers, or if you are very worried you need to be rechecked again immediately Referrals: [facility] [Provider Group] HPI General Date/Time Provider Initiated Documentation: 10/30/24 18:48 . HPI Narrative: Cate is a 59-year-old female presents with right hand swelling, accompanied by her . Swelling began last Tuesday (1 week ago, after weed whacking; no known trauma or insect bites/lesions) with redness and inflammation in the thumb, extending to the entire hand over the weekend. Unable to flex wrist or fingers due to swelling and soreness, no numbness in fingers. Pain is intense and aching, localized to the joints. Denies other joint swelling or systemic symptoms. She denies previous history of similar swelling., no family history of similar symptoms. No ankle swelling. Contacted PCP at 0830 hours, advised to seek emergency care at 1630 hours. Despite prednisone taken yesterday and today, swelling progressed to forearm. X-ray performed yesterday. Past medical history significant for hypertension, currently on medication, off hydrochlorothiazide. Compliant with potassium supplements for hypokalemia. Related Data Home Medications ?Medication ?Instructions ?Recorded ?Confirmed atenolol 50 mg tablet 100 mg PO DAILY 09/12/23 10/30/24 hydrochlorothiazide 25 mg tablet 25 mg PO DAILY 09/12/23 10/30/24 levothyroxine 125 mcg capsule 125 mcg PO DAILY 09/12/23 10/30/24 potassium chloride 20 mEq 20 meq PO DAILY 09/12/23 10/30/24 tablet,extended release rosuvastatin 20 mg tablet 20 mg PO DAILY 09/12/23 10/30/24 acetaminophen 500 mg tablet 1,000 mg (2 x 500 mg) PO Q8H PRN 12/30/23 10/30/24 pain #90 tabs amlodipine 5 mg tablet 5 mg PO ONCE 10/29/24 10/30/24 cephalexin 500 mg capsule 500 mg PO Q6H 7 days #28 caps 10/29/24 10/30/24 potassium chloride 20 mEq 40 meq (2 x 20 mEq) PO BID #30 tabs 10/29/24 10/30/24 tablet,extended release(part/cryst) prednisone 20 mg tablet 40 mg (2 x 20 mg) PO ONCE #10 tabs 10/29/24 10/30/24 Previous Rx's ?Medication ?Instructions ?Recorded acetaminophen 500 mg tablet 1,000 mg (2 x 500 mg) PO Q8H PRN 12/30/23 pain #90 tabs cephalexin 500 mg capsule 500 mg PO Q6H 7 days #28 caps 10/29/24 potassium chloride 20 mEq 40 meq (2 x 20 mEq) PO BID #30 tabs 10/29/24 tablet,extended release(part/cryst) prednisone 20 mg tablet 40 mg (2 x 20 mg) PO ONCE #10 tabs 10/29/24 Allergies Allergy/AdvReac Type Severity Reaction Status Date / Time codeine AdvReac Other (See Verified 03/15/24 12:56 Comment) General Stated Complaint: Cellulitis LIBERTAD: 3 Exam Narrative Exam Narrative: General Appearance: Normal. Patient is alert and oriented, no acute distress. Vital signs: Elevated heart rate. Extremities: Right hand swollen from distal forearm to fingertips with mild erythema. Edema is nonpitting. Very warm to palpation. Range of motion limited due to significant joint swelling. Full painless range of motion of elbow. No pedal edema. Skin: Warm and dry, no rash. Psychiatric: Normal. Extrem Other: Course Vital Signs Vital signs: Vital Signs Temperature 36.5 C 10/30/24 18:44 Pulse 81 10/30/24 18:44 Respiratory Rate 16 10/30/24 18:44 Blood Pressure 165/109 H 10/30/24 18:44 Pulse Oximetry 98 10/30/24 18:44 Temperature 36.5 C 10/30/24 18:46 Pulse 81 10/30/24 18:46 Respiratory Rate 16 10/30/24 18:46 Blood Pressure 165/109 H 10/30/24 18:46 Pulse Oximetry 98 10/30/24 18:46 Pain Level 8 10/30/24 18:46 Lab/Test Results Lab/Test Results: Laboratory Tests Range/Units 10/30/24 19:12 WBC (4.4-10.8) 10^3/uL 15.20 H RBC (3.93-5.22) 10^6/uL 3.99 Hgb (11.2-15.7) g/dL 12.9 Hct (36.0-46.0) % 36.9 MCV (80-95) fL 93 MCH (27.0-33.0) pg 32.3 MCHC (32.0-36.0) % 35.0 RDW (11.7-14.6) % 13.2 Plt Count (130-400) 10^3/uL 226 MPV (8.0-11.0) fL 10.9 Immature Gran % % 0.5 Neutrophils % % 86.5 Lymphocytes % % 6.5 Monocytes % % 6.4 Eosinophils % % 0.0 Basophils % % 0.1 Nucleated RBC % (0.0-0.3) % 0.0 Absolute Neutrophils (1.2-6.7) 10^3/uL 13.15 H Absolute Lymphocytes (1.2-3.4) 10^3/uL 0.99 L Absolute Monocytes (0.1-0.8) 10^3/uL 0.97 H Absolute Eosinophils (0.0-0.7) 10^3/uL 0.00 Absolute Basophils (0.0-0.2) 10^3/uL 0.02 ESR (0-30) mm/hr 44 H Procedure Orthopedic Splinting/Casting Side: right Upper Extremity Immobilizer: volar splint Medical Decision Making Initial Assessment: 59-year-old female with right hand swelling, started last Tuesday in the right thumb and spread to the whole hand by the weekend. No trauma or insect bites noted. Prednisone taken, symptoms worsening. Swelling appears in the skin/soft tissue, not joints. DDx includes but not limited to: Lymphedema, cellulitis, arthritis/other inflammatory process ED Course: - Blood work to evaluate blood count and inflammatory markers, as well as potassium levels - Consult orthopedics - Recheck potassium levels today I independently interpreted the following tests: CBC notable for leukocytosis, 15.2 (increased from 9.8 yesterday but patient has been taking prednisone). Sed rate elevated today at 44 (increased from 24 yesterday); CRP 10.73 (increased from 5.22 yesterday). CMP reassuring, shows improved hypokalemia. Final Assessment: Patient presented with worsening right hand swelling despite taking prednisone. Swelling localized to the skin, not joints. Overall labs reassuring, inflammatory marker slightly elevated. Hypokalemia managed with potassium supplements, improved today (3.2). Dr. Gregory, [facility] orthopedist in to evaluate patient. Reviewed patient presentation, labs, and imaging. Unclear etiology of swelling, inflammatory versus infectious in differential. He recommends volar splint for comfort, loading dose of ceftriaxone, and continued prednisone/Keflex use at home. Patient to have close follow-up with orthopedics. Patient would not benefit from inpatient admission. I did apply a volar splint using 3 inch Ortho-Glass. Patient tolerated procedure well, neurovascular intact Clinical Impression: - Right hand swelling - Hypokalemia Disposition: - Discharge home after IV antibiotic loading dose; patient to continue Keflex at home. - Follow-Up: Call orthopedics first thing in the morning to schedule follow-up appointment - Continue potassium supplementation MDM Components Evaluation: - Number of Differential Diagnoses or Management Options: Right hand swelling, Hypertension, Hypokalemia - Amount and Complexity of Data Reviewed: Blood work, orthopedic consultation - Risk of Complication and Morbidity or Mortality: Dehydration indicated by elevated heart rate and concentrated urine, potential complications from untreated hypokalemia and hypertension Patient consented to the use of BRENT Quality:SDOH Health Related Social Needs: 2 No Data to Display PFSH All Active Problems Hand swelling (Acute) Hypokalemia (Acute) History of total bilateral knee replacement (Acute 12/13/23) Medical History Hyperlipidemia Hypothyroid Hypertension Surgical History Hx laparoscopic cholecystectomy History of total right hip arthroplasty Social History Smoking/Tobacco Use Status: Never Smoking risk assessment performed?: Yes Alcohol Intake: never Drug use: Never Substance use type: does not use Housing: house Do you feel safe at home: Yes Do you feel safe in your relationship?: Yes
[2024-10-30 19:33] LABS: Anion Gap 10.5 mmol/L (3-11); BUN 19 mg/dL (7-18); C-Reactive Protein 10.73 mg/dL (<or=0.5); CO2 27.5 mmol/L (21.0-32.0); CREATININE 0.8 mg/dL (0.55-1.02); Calcium 9.6 mg/dL (8.5-10.1); Chloride 104 mmol/L (98-107); Estimated GFR 83.78 (mL/min/1.73m2); Glucose 197 mg/dL (74-106); Potassium 3.2 mmol/L (3.5-5.1); Sodium 142 mmol/L (136-145)
--- NOTE | 2024-10-30 20:00 | DI.CT_ITS ---
Exam(s) CT UPPER EXTREMITY RT WO/W EXAM: CT UPPER EXTREMITY RT WO/W CLINICAL HISTORY: unilateral hand swelling. TECHNIQUE: Imaging Protocol: Axial computed tomography images with coronal and sagittal reformatted images were created and reviewed. CONTRAST MATERIAL: Intravenous: Omnipaque 350. Contrast Volume: 100 ML COMPARISON: CR XR HAND RT COMPLETE from 03/24/2023 CR XR HAND RT COMPLETE from 10/29/2024 FINDINGS: Bones: There is again seen fragmentation of the capitate which is old. Subchondral cysts are seen i n multiple carpal bones. Bony alignment is satisfactory. No cellulitic or osteomyelitic changes are identified. There is mild arthrosis of the hand and wrist. No suspicious sclerotic lesions are see n. Soft Tissues: There is a multiloculated fluid collection measuring 1.0 cm AP x 1.4 cm transverse by 1 .5 cm craniocaudad in the soft tissues inferior to the pisotriquetral joint. It appears to communica te with the joint. This may represent a ganglion cyst. Abscess cannot be excluded. There is edema seen in the soft tissues in the hand and wrist. There are areas of mild skin thickening. No other f ocal fluid collection is seen. Findings are most marked involving the thumb and the index finger. N o radiopaque foreign body is seen. There is fluid seen in the radiocarpal joint. Enhancement: No abnormal enhancement is identified. IMPRESSION: 1. Edema seen throughout the hand and wrist, particularly involving the thumb and index finger with a reas of skin thickening present. The findings are suggestive of cellulitis. 2. 1.0 x 1.4 x 1.5 cm fluid collection arising from the pisotriquetral joint likely reflecting a gang lion cyst. Abscess cannot be entirely excluded. 3. Stable fragmentation seen at the capitate. 4. Mild arthrosis of the hand and wrist. 5. Effusion seen in the radiocarpal joint. 6. The preliminary [facility] report was reviewed. Unexpected findings RADIATION DOSE DELIVERED: 169.7mGy.cm Total DLP 169.7mGy.cm Total DLP DATA REPOSITORY: All CT scans at this facility are submitted to the National Radiology Data Registry (NRDR) Dose Index Registry (DIR) with the [employer] ([employer]). RADIATION OPTIMIZATION: All CT scans at this facility use at least one of these dose optimization te chniques: automated exposure control; mA and/or kV adjustment per patient size (includes targeted exa ms where dose is matched to clinical indication); or iterative reconstruction.
[2024-10-30 20:34] LABS: Uric Acid 3.2 mg/dL (2.6-6.0)
[2024-10-30] MEDS: Omnipaque 350 MG/ML 100 ML BTL IJ (20:59)
[2024-10-30] MEDS: Normal Saline - Diluent 50 ML VIAL IJ (21:00)
[2024-10-30] MEDS: Normal Saline Flush 10 ML SYR IVP (21:01)
[2024-10-30] MEDS: cefTRIAXone 2 GM/50 ML BAG IVPB (21:20)
[2024-10-30] MEDS: MORPHine IR 15 MG TAB, 4 TABS/BTL PO (21:35)
[2024-10-30] MEDS: MORPHine IR 15 MG TAB PO (21:35)
[2024-10-30 21:45] VITALS: BP 183/105; PULSE 73; RESP 18; TEMP 36.1; O2SAT 98
--- NOTE | 2024-10-30 22:02 | DI.VRAD_ITS ---
Addendum created by Lindsey Dorado MD on 10/30/2024 10:08:22 PM EDT: The exam section should read:- Exam: CT right upper extremity without and with contrast. Initial report created on 10/30/2024 10:02:19 PM EDT: PROCEDURE INFORMATION: Exam: CT Left Upper Extremity Without and With Contrast, Hand Exam date and time: 10/30/2024 8:29 PM Age: 59 years old Clinical indication: Right; Unilateral hand swelling TECHNIQUE: Imaging protocol: Computed tomography of the left upper extremity without and with contrast. Exam focused on the hand. Radiation optimization: All CT scans at this facility use at least one of these dose optimization techniques: automated exposure control; mA and/or kV adjustment per patient size (includes targeted exams where dose is matched to clinical indication); or iterative reconstruction. Contrast material: OMNIPAQUE 350; Contrast volume: 100 ml; Contrast route: INTRAVENOUS (IV); COMPARISON: No relevant prior studies available. FINDINGS: Bones/joints: No acute fracture or dislocation. Fluid noted surrounding the carpal joints, possibly infectious/inflammatory in etiology. Cystic structures noted throughout the carpal bones, likely degenerative in nature. Soft tissues: Subcutaneous edema noted throughout the region of the wrist, greatest in the posterior aspect.. IMPRESSION: 1. No acute fracture or listhesis 2. Subcutaneous edema noted, possibly cellulitis. Clinical correlation is recommended. 3. Subchondral cysts seen throughout the right carpal bones, likely degenerative in nature. 4. Wrist joint effusion noted. Dictated and Authenticated by: Lindsey Dorado MD. Orderin Natty Morton MD
--- NOTE | 2024-10-30 22:27 | W.ORTHOCONSU ---
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 This started soon after doing a lot of weed trimming around the property. She denied any penetrating injury. She denied any laceration. She first noticed some swelling and some redness in the dorsal radial aspect of the wrist and over the base of the thumb. The redness seen improved but the swelling continued to worsen. She then presented to the emergency department yesterday, October 29, with worsening pain with all range of motion and swelling. She also was noted to have significant hypokalemia. She was given a brace has been unable to tolerate it. She was also given prednisone and Keflex for which she has taken less than 1 days dose without any improvements. She is quite concerned with the level of pain with any attempted range of motion. The thought was that she had some exacerbation of her arthritis but there was increase inflammatory markers. No gross changes today except that she has continued pain and swelling. She finds it difficult to move her fingers with pain mostly in the palm and the wrist. She denies numbness or tingling. She denies fevers or chills. Consults Consult date: 10/30/24 Requesting physician: Selene Corral Consult Reason Right hand swelling and pain Assessment and Plan Assessment and plan (1) Right wrist effusion: Status: Acute (2) Arthritis of right wrist: Status: Acute (3) Lesion of bone of right hand: Status: Acute Assessment and plan: Cate is a 59-year-old [id number] active female with about 10 days or so of right hand and wrist hand and swelling. This is quite a challenging and bizarre story. She was doing some weed trimming but otherwise did not have any recalled penetrating injury or laceration. She has had progressive swelling and pain. She has increasing inflammatory markers now with a CRP of 10 and an increased white blood cell count. She did start on some prednisone thinking this could be some form of arthritis given the arthritic change seen on the hand x-ray as well as Keflex. She has just been on this for [address] scan performed today does show in more detail pathology within the carpus which is much more extensive than I was anticipating. There is notable fragmentation of the capitate and there seems to be bony erosions in the bones adjacent to the capitate. Is unclear but it looks like there is a sclerotic line through the capitate suggesting either previous trauma. Is possible this could be the origin of some type of intraosseous pathology. However, the cystic changes extensive and the fragmentation is extensive as well. We will continue with antibiotics at this time although this seems unusual to develop an infection within the bone in the wrist without any penetrating injury. I would like to obtain an MRI to better evaluate this. She has no septic concerns at this point. Will continue with the antibiotics. I will also reach out to some hand colleagues where she may need tertiary referral. She will be placed into a splint today to rest the wrist. Review of Systems All systems reviewed & are unremarkable except as noted in HPI and below PFSH All Active Problems Lesion of bone of right hand (Acute) Arthritis of right wrist (Acute) Right wrist effusion (Acute) Hand swelling (Acute) Hypokalemia (Acute) History of total bilateral knee replacement (Acute 12/13/23) Medical History Hyperlipidemia Hypothyroid Hypertension Surgical History Hx laparoscopic cholecystectomy History of total right hip arthroplasty Social History Smoking/Tobacco Use Status: Never Smoking risk assessment performed?: Yes Alcohol Intake: never Drug use: Never Substance use type: does not use Housing: house Do you feel safe at home: Yes Do you feel safe in your relationship?: Yes Exam Const General: cooperative, healthy appearing, uncomfortable and no acute distress Skin Lesions: no lesions Rashes: no rashes Wounds: no wounds Extrem Other: Evaluation of the right upper extremity shows soft tissue swelling about the right hand and wrist. This is focused mostly dorsal extending from the MCP joints and then just to the distal forearm. There is exquisite pain to palpation about the wrist and the carpus and to a lesser extent down over the metacarpals. There is also some pain palmarly within the wrist and in the palm side of the wrist. Is quite diffuse about the wrist and maybe involves the MCP joints more so than the actual flexor tendons. There is no pain along the flexor tendons within the fingers. There is no significant swelling in the fingers themselves. She is unable to demonstrate any active wrist range of motion due to pain. Passively I can move her maybe 20 degrees in flexion extension although it causes pain at the endpoints but she does tolerate it slightly better. There is notable soft tissue swelling around the wrist is difficult to appreciate any significant joint effusion. No crepitus with range of motion. No subcutaneous emphysema. No streaking. Palpable radial pulse. Sensation intact to light touch of the median, radial, ulnar nerve. FDP and FDS are intact in the digits as well as FPL and EPL. More focused examination is otherwise limited due to pain and swelling. Results Last Vital Signs Temp 36.1 C L 10/30/24 21:45 Pulse 73 10/30/24 21:45 Resp 18 10/30/24 21:45 BP 183/105 H 10/30/24 21:45 Pulse Ox 98 10/30/24 21:45 Labs 10/30/24 19:12 10/30/24 19:12 Labs: Laboratory Results - last 24 hr 10/30/24 10/30/24 19:12 19:15 WBC 15.20 H RBC 3.99 Hgb 12.9 Hct 36.9 MCV 93 MCH 32.3 MCHC 35.0 RDW 13.2 Plt Count 226 MPV 10.9 Immature Gran % 0.5 Neutrophils % 86.5 Lymphocytes % 6.5 Monocytes % 6.4 Eosinophils % 0.0 Basophils % 0.1 Nucleated RBC % 0.0 Absolute Neutrophils 13.15 H Absolute Lymphocytes 0.99 L Absolute Monocytes 0.97 H Absolute Eosinophils 0.00 Absolute Basophils 0.02 ESR 44 H Sodium 142 Potassium 3.2 L Chloride 104 Carbon Dioxide 27.5 Anion Gap 10.5 BUN 19 H Creatinine 0.8 Est GFR (CKD-EPI 2020) 83.78 Glucose 197 H Uric Acid 3.2 Calcium 9.6 C-Reactive Protein 10.73 H Imaging Imaging Studies: X-ray of the right hand from yesterday shows notable arthritic changes in the wrist. There seems to be some fragmentation within the capitate. CT scan of the right wrist with contrast performed today shows aforementioned disease in the carpus which is quite extensive. There is notable fragmentation of the capitate with loss of its contiguous architecture and what appears to be either an old fracture or fragmentation into 2 primary pieces with multiple other fragments. There are large cystic changes in the radial aspect of the hamate abutting the capitate in addition to cystic changes of the trapezoid and the distal scaphoid all adjacent to this disintegrating capitate. No significant areas of concern are seen within the metacarpals. Maybe some mild arthritis within the hand joints. There is some arthritis seen in the thumb MCP joint with small osteophytes and joint space narrowing. No area of abscess or fluid collection. Generalized soft tissue swelling. Likely wrist effusion. No intercarpal widening or significant malalignment.
[2024-10-31 18:18] LABS: Rheumatoid Factor 17.9 IU/mL (<12.0)
[2024-11-01 15:10] LABS: ANA Interpretation Positive (Negative); ANA Titer Pattern 1:80 Homogeneous
== END 2024-10-30 21:50 | disposition home or self-care (01) ==
PROVIDERS: Emergency Provider Nurse Practitioner Family; PCP Physician Assistant Medical
DX: M25.431 Effusion, right wrist; R22.31 Localized swelling, mass and lump, right upper limb; E87.6 Hypokalemia; I10 Essential (primary) hypertension; E78.5 Hyperlipidemia, unspecified; E03.9 Hypothyroidism, unspecified
CPT/HCPCS: 80048; 85652; 96365; 99285; 73202; 84550; 85025; 86038; 86140; 86431; 99284; J0696; J3490

== ENCOUNTER 2024-10-31 09:49 | Outpatient (CLI) | payer MEDICAID, SELFPAY ==
--- NOTE | 2024-10-31 09:45 | DI.MRI_ITS ---
Exam(s) MR UPPER JOINT RT WO/W EXAM: MR UPPER JOINT RT WO/W CLINICAL HISTORY: Cystic erosion of wrist and swelling,lesion rt hand, effusion. TECHNIQUE: Multiplanar multisequence MRI was performed. CONTRAST MATERIAL: IV Contrast: 20 mL of Dotarem contrast administered. COMPARISON: None. FINDINGS: Bones: There is fragmentation again seen of the capitate, particularly its proximal pole. There is h ypointense signal seen on the T1 weighted and hyperintense signal on the T2 weighted images within th e fragments of the proximal capitate. The large distal capitate fragment is predominantly T1 hyperin tense and T2 hypointense. There are areas of hyperintense signal seen proximally. There are areas o f hypointense signal on the T1 weighted images and hyperintense signal seen on the T2 weighted images scattered in the remaining carpal bones. There is normal marrow signal seen in the distal radius an d ulna the metacarpals and visualized phalanges. There is an effusion in the radiocarpal joint which shows an enhancing wall following contrast administration. There is also no effusion in the distal radial ulnar joint which shows an enhancing wall following contrast administration. There is again s een a fluid collection associated with the pisotriquetral joint which may represent a ganglion. Ligaments: The TFCC is intact. The scapholunate ligament appears to be intact. There is no evidence of suspicious enhancement. Musculoskeletal Structures: The visualized flexor and extensor tendons are intact. Following contras t administration there is enhancement around the extensor tendons. This is concerning for tenosynovi tis. There is edema seen in the soft tissues throughout the wrist. The findings are most marked yamilex ng the dorsum of the wrist. There is skin thickening present predominantly on the dorsum of the hand and wrist. There is extension into the fingers, particularly the soft tissues of the 2nd, 3rd and 4 th fingers. There is edema seen in the carpal tunnel. Following contrast administration, there is e nhancement of the wall of the fluid collection associated with the flexor tendons. This collection m easures 2.2 x 0.5 cm (series [id number], image 12). The visualized median nerve appears to be within normal limits and is normally located within the car pal tunnel. The contents of Guyon's canal and the visualized ulnar nerve are within normal limits. IMPRESSION: 1. Findings suggestive of a diffuse infectious/inflammatory process with diffuse edema and skin thick ening in the hand and wrist, particularly on the dorsum of the wrist and the dorsal aspect of the 2nd , 3rd and 4th fingers. The findings are suggestive a cellulitis. 2. Wall enhancing fluid collection seen posterior to the carpal tunnel suspicious for an abscess. 3. There is also enhancement of the DRUJ and the radiocarpal joints. Septic arthritis is suspected. 4. Enhancement involving the extensor tendons suspicious for infectious/inflammatory tenosynovitis. 5. Overall, the findings are suspicious for diffuse infectious process. 6. Fragmentation of the capitate is again noted. This is a chronic process. 7. Findings were discussed with Dr. Gregory at 4:30 p.m. on 10/31/2024. DATA REPOSITORY:
[2024-10-31] MEDS: Gadoterate meglumine 20 ML SYRINGE IVP (15:25)
[2024-10-31] MEDS: Normal Saline Flush 10 ML SYR IJ (15:25)
== END 2024-10-31 10:09 ==
LOC: DI 09:51
PROVIDERS: PCP Physician Assistant Medical; Visit Provider Student in an Organized Health Care Education/Training Program
DX: M25.431 Effusion, right wrist; R93.6 Abnormal findings on diagnostic imaging of limbs
CPT/HCPCS: 73223

== ENCOUNTER 2024-11-01 10:44 | Day surgery (SDC) | payer MEDICAID, SELFPAY ==
[2024-11-01] VITALS (54 sets, daily range): BP systolic 106–178; BP diastolic 71–129; PULSE 54–68; RESP 12–24; TEMP 36.2–36.9; O2SAT 87–98; BMI 42.2
--- NOTE | 2024-11-01 11:22 | W.ORTHOCONSU ---
Date of service: 11/01/24 Time of Service: 11:23 Assessment and Plan Assessment and plan (1) Extensor tenosynovitis of right wrist: Status: Acute (2) Septic arthritis of wrist, right: Status: Acute Assessment and plan: 59-year-old female, [id number], with right hand-wrist infection seeming to involve the extensor tendons, flexor tendons and deep space below the carpal tunnel Parona, wrist joint and DRUJ. Describes weed whacking last Tuesday, denies any injury. Woke up the next morning with pain and swelling at the base of her thumb, has subsequently spread about her hand and wrist. Seen in the ER twice, first had an x-ray, provided with Keflex for concern of infection and oral prednisone for concern of arthritic exacerbation. Splint provided. Symptoms worsen, return to the ER at that time orthopedic consultation obtained, please see the note by Dr. Gregory on 10/30/2024. Subsequent MRI obtained and I&D recommended. Past medical history of hypertension, thyroid disease. Denies diabetes or autoimmune disorder. Denies fever, other joint pain, or rash elsewhere on her body. Right wrist and hand exam: Skin is intact. There is diffuse swelling, warmth, erythema, tenderness, worse over the dorsum of the hand. Demonstrates very limited wrist flexion and extension. Very limited flexion, extension, abduction, adduction of all digits. Normal radial pulse and capillary refill. Skin intact throughout. No obvious puncture site. No obvious abscess. Significant tenderness over the carpal tunnel and dorsal wrist. Moderately significant pitting edema especially the dorsal hand and wrist. No carpal tunnel symptoms. Discussed thoroughly with patient and Dr. Gregory. See his note for additional details. Complex right hand and wrist infection seemingly without good cause and otherwise healthy patient with infection seen contrast-enhancement MRI and multiple sites seeming to involve the flexor tendons, carpal tunnel, deep space of Parona, wrist joint, DRUJ, and extensor tendons. Chronic carpal bone problem does not appear involved. Reviewed volar and dorsal surgery plan. Possible need for additional surgery based on findings. Likely observation for 24 hours of IV antibiotics, but may change this plan depending on OR findings. No nerve dysfunction at this time, but the carpal tunnel should probably be opened to expose irrigate and debride the flexor tendons, median nerve, and deep space beneath. Likely loose closure allowing some drainage. Decision to proceed with surgery on 11/01/2024 complex right hand and wrist irrigation debridement, carpal tunnel release, and any other indicated procedures. The risks, benefits, and alternatives were thoroughly discussed. Patient was counseled regarding pain management, expected postoperative course, and recovery timeline. All questions were answered. Informed consent was obtained. Agree and understand treatment plan. Follow up 10-14 days after surgery. Will call if any changes or concerns. Breathing comfortably on room air. Lungs clear to auscultation. No coughs or wheezes. 2+ left radial pulse. Regular rate and rhythm. PFSH All Active Problems Extensor tenosynovitis of right wrist (Acute) Septic arthritis of wrist, right (Acute) Lesion of bone of right hand (Acute) Arthritis of right wrist (Acute) Right wrist effusion (Acute) Hand swelling (Acute) Hypokalemia (Acute) History of total bilateral knee replacement (Acute 12/13/23) Medical History Hyperlipidemia Hypothyroid Hypertension Surgical History Hx laparoscopic cholecystectomy History of total right hip arthroplasty Social History Smoking/Tobacco Use Status: Never Smoking risk assessment performed?: Yes Alcohol Intake: never Drug use: Never Substance use type: does not use Housing: house Do you feel safe at home: Yes Do you feel safe in your relationship?: Yes Results Last Vital Signs Temp 36.6 C 11/01/24 11:05 Pulse 65 11/01/24 11:05 Resp 18 11/01/24 11:05 BP 144/86 H 11/01/24 11:05 Pulse Ox 97 11/01/24 11:05
[2024-11-01] MEDS: Lactated Ringers 1,000 ML 80 ML IV (11:50)
--- NOTE | 2024-11-01 12:10 | ANES.PREOP_ITS ---
General Info Date of Service Date Performed: 11/01/24 Height: 5 ft 4 in Weight: 111.5 kg Body Mass Index (BMI): 42.2 Surgical Procedure: Operation Date: 11/01/24 12:40 Proposed Procedure Side Surgeon p Wrist I&D Right Gustavo Onofre MD Meds Allergies and Home Medications Allergies Allergy/AdvReac Type Severity Reaction Status Date / Time codeine AdvReac Other (See Verified 11/01/24 10:59 Comment) Home Medication ?Medication ?Instructions ?Recorded atenolol 50 mg tablet 100 mg PO DAILY 09/12/23 hydrochlorothiazide 25 mg tablet 25 mg PO DAILY 09/12/23 levothyroxine 125 mcg capsule 125 mcg PO DAILY 09/12/23 potassium chloride 20 mEq 20 meq PO DAILY 09/12/23 tablet,extended release rosuvastatin 20 mg tablet 20 mg PO DAILY 09/12/23 acetaminophen 500 mg tablet 1,000 mg (2 x 500 mg) PO Q8H PRN 12/30/23 pain #90 tabs amlodipine 5 mg tablet 5 mg PO ONCE 10/29/24 cephalexin 500 mg capsule 500 mg PO Q6H 7 days #28 caps 10/29/24 potassium chloride 20 mEq 40 meq (2 x 20 mEq) PO BID #30 tabs 10/29/24 tablet,extended release(part/cryst) prednisone 20 mg tablet 40 mg (2 x 20 mg) PO ONCE #10 tabs 10/29/24 alprazolam 0.5 mg tablet 0.5 mg PO ONCE PRN claustrophobia 10/31/24 #2 tabs morphine 15 mg immediate release 15 mg PO Q4H PRN pain #15 tabs 10/31/24 tablet Current Visit Medications: Current Medications Generic Name Dose Route Start Last Admin Trade Name Freq PRN Reason Stop Dose Admin Ringer's Solution 1,000 mls @ 80 mls/hr 11/01/24 06:00 IV 11/01/24 23:59 INFUSION JOSE Tranexamic Acid/Sodium Chloride 1,000 mg in 100 mls @ 600 mls/hr 11/01/24 06:00 IVPB 11/01/24 23:59 PREOP JOSE IV Miscellaneous Supplies 1 each 11/01/24 06:00 Iv Access IV 11/01/24 23:59 DIRECTED JOSE Sodium Chloride 0 ml 11/01/24 06:00 Normal Saline Flush 10 Ml Syr IV 11/01/24 23:59 PRN PRN Sodium Chloride 0 ml 11/01/24 06:00 Normal Saline 10 Ml Vial IJ 11/01/24 23:59 DIRECTED PRN Sterile Water 0 ml 11/01/24 06:00 Water,Injection,Sterile 10 Ml Vial IJ 11/01/24 23:59 DIRECTED PRN PFSH Active Problems Active Problems: Problem Status Onset Code Extensor tenosynovitis of right wrist Acute M65.931 Septic arthritis of wrist, right Acute M00.9 Lesion of bone of right hand Acute M89.9 Arthritis of right wrist Acute M19.031 Right wrist effusion Acute M25.431 Hand swelling Acute M79.89 Hypokalemia Acute E87.6 History of total bilateral knee replacement Acute 12/13/23 Z96.653 Medical History Medical History Hyperlipidemia Hypothyroid Hypertension Surgical History Surgical History Hx laparoscopic cholecystectomy History of total right hip arthroplasty Tobacco Smoking/Tobacco Use Status: Never Alcohol Alcohol Intake: never Substance Use Substance use: Never Substance use type: does not use Vital Signs and Lab Results Vital Signs Most Recent Vital Signs in EMR: Most Recent Vital Signs Temp Pulse Resp BP Pulse Ox 36.6 C 65 18 144/86 H 97 11/01/24 11:05 11/01/24 11:05 11/01/24 11:05 11/01/24 11:05 11/01/24 11:05 Lab Results Blood Type / Crossmatch: No Data to Display Complete Blood Count: White Blood Count 15.20 10^3/uL (4.4-10.8) H 10/30/24 19:12 Red Blood Count 3.99 10^6/uL (3.93-5.22) 10/30/24 19:12 Hemoglobin 12.9 g/dL (11.2-15.7) 10/30/24 19:12 Hematocrit 36.9 % (36.0-46.0) 10/30/24 19:12 Platelet Count 226 10^3/uL (130-400) 10/30/24 19:12 Complete Metabolic Panel: Sodium 142 mmol/L (136-145) 10/30/24 19:12 Potassium 3.2 mmol/L (3.5-5.1) L 10/30/24 19:12 Chloride 104 mmol/L (98-107) 10/30/24 19:12 Carbon Dioxide 27.5 mmol/L (21.0-32.0) 10/30/24 19:12 BUN 19 mg/dL (7-18) H 10/30/24 19:12 Creatinine 0.8 mg/dL (0.55-1.02) 10/30/24 19:12 Est GFR (CKD-EPI 2020) 83.78 (mL/min/1.73m2) 10/30/24 19:12 Magnesium 1.9 mg/dL (1.8-2.4) 10/29/24 10:09 Calcium 9.6 mg/dL (8.5-10.1) 10/30/24 19:12 Albumin 3.8 g/dL (3.4-5.0) 10/29/24 10:09 Glucose 197 mg/dL (74-106) H 10/30/24 19:12 C-Reactive Protein 10.73 mg/dL (<or=0.5) H 10/30/24 19:12 Liver Function Panel: Alanine Aminotransferase (ALT/SGPT) 30 U/L (14-59) 10/29/24 10: 09 Aspartate Amino Transf (AST/SGOT) 16 U/L (15-37) 10/29/24 10:09 Coagulation Panel: No Data to Display Cardiac Panel: No Data to Display Arterial Blood Gas: No Data to Display Venous Blood Gas: No Data to Display Pancreas Panel: No Data to Display Thyroid Panel: No Data to Display Infectious Disease: No Data to Display Blood Cultures: No Data to Display Toxicology Panel: No Data to Display Imaging and Studies Imaging and Studies Study information below may be from another EMR and interpreted by another provider. Please see original notes in EMR for more complete details. EKG Summary: 10/29/24: Exam: Resting ECG Reason for Exam: hypokalemia Patient Location: E HR:79 bpm ECG Measurements Heart Rate 79 AXIS IL 242 P 73 QRSd 110 QRS 86 QT 393 T2 QTc 451 Conclusion Sinus rhythm, rate 79 1st degree HB, unchanged from prior No STEMI I have reviewed and I agree with the emergency room physician's ECG interpretation. Anesthesia Assessment and Plan Anesthesia History Personal History: PONV Family History: No Family History of Anesthesia Complications Exercise Tolerance Exercise Tolerance: Metabolic Equivalents>4 Pertinent Negatives Pertinent Negatives: No Symptoms of GERD, No Major Cardiovascular Symptoms or Complaints, No Major Pulmonary Symptoms or Complaints and No History of CVA/TIA Cardiac & Pulmonary Exam Cardiac Exam: Normal S1/S2 Heart Sounds Pulmonary Exam: Clear Bilateral Breath Sounds and No cough or Cold Implantable Cardiac Device Does patient have a Pacemaker or an ICD?: No Airway Exam Known Difficult Airway: No Mallampati Class: 2 Mouth Opening: Normal (> 3cm) Thyromental Distance: Greater than 3 cm Neck Range of Motion: Full ROM Neck Circumference: Thick Teeth Condition: Normal Dentition ASA Classification ASA Score: ASA 3 Emergency Case?: No NPO Status NPO Status: NPO Clears >2 hours, Solids >8 hours Anesthesia Plan Resuscitation Status: Full Code Anesthesia Technique: General Anesthesia Airway Planned: Endotracheal Tube Monitors Used: Standard Monitors
--- NOTE | 2024-11-01 12:38 | ROE_ITS ---
Operative Note Operative Note PRE-OP DIAGNOSIS: Complex right hand and wrist infection POST-OP DIAGNOSIS: same PROCEDURE: Complex right hand and wrist irrigation debridement 1. Incision and drainage deep volar abscess wrist, CPT #04676 2. Arthrotomy radopcarpal and distal radial ulnar joints with drainage, CPT #54772 3. Incision and drainage dorsal extensor tendons, CPT #82240 4. Incision and drainage volar flexor tendons, CPT #45555 SURGEON: Gustavo Onofre HAT FORMING MACHINE OPERATOR: Ortega Keller ANESTHESIA TYPE: Local By Surgeon and General LMA/ETT Refer to Anesthesia Record ESTIMATED BLOOD LOSS: 10 PATHOLOGY: other (Multiple swabs aerobic anaerobic and single tissue culture) COMPLICATIONS: None Patient was transported to: PACU Patient's condition: stable Indications: Please see complete medical record for details. Findings: Multiple areas of purulent material corresponding to the MRI findings and the deep volar Parona space, volar ulnar area, dorsal extensor tendons, and radiocarpal joint most notably. Procedure Description: In the operating room, general anesthesia was induced. The patient was positioned supine on the operating room table. All bony prominences were well- padded. Preoperative antibiotics were administered as the patient has already been on antibiotics for this infection. The right hand and wrist were prepped and draped in the usual sterile fashion. The correct patient, procedure, and side of the procedure were all verified prior to incision. A planned small volar Capo approach and dorsal central midline approach was planned to address the multiple volar and dorsal sites of infection. These incisions were preinjected with 20 cc of 0.25% bupivacaine containing epinephrine. Starting volarly, and working through the floor of the FCR the deep space beneath the flexor tendons and above the pronator quadratus was exposed and gross purulence encountered. Multiple culture swabs were taken as well as a soft tissue purulent fibrinous material sent for sample. There were some other more congealed solidified purulent type tissues which were removed with a rongeur. All purulence was copiously irrigated with saline. The approach was carried ulnarly deeply while still preserving the volar joint capsule and pronator quadratus and using a Hohmann and daniela Gonzales the more ulnar fluid collection was found and this purulence removed with the suction. The deep space was copiously irrigated with about 1.5 L of normal saline. Working from deep radial the flexor tendons were then inspected and irrigated carefully and bluntly avoiding the median nerve without any obvious purulence here. An additional 1 liter of normal saline was infiltrated about the wound including these flexor tendons. The clean wound was then inspected and all margins checked without any additional purulence encountered or signs of infection. The hand and wrist distal and proximal to the approach were then squeezed to express any missed infection into the wound area and nothing significant was encountered. The last 0.5 L of saline was washed throughout this wound and then a moist lap placed while the dorsal exposure was done. A few centimeter relatively midline dorsal incision was made centered over the wrist joint. The extensor tendons were readily encountered just past the extensor retinaculum and spread apart with some purulence encountered here. The individual tendon sheaths were then identified and bluntly spread with Metzenbaum scissors within the tendon and then suction and pressure from the fingertips more proximally used to express an completely decompress each tendon working underneath the dorsal hand tissues distally. The extensor retinaculum w as then split leaving a cuff of tissue on the radial and ulnar margins. The tendons were then inspected here and more proximally without infection but irrigation was done. A needle was used to localize the radiocarpal joint which was then opened with a small incision with a knife, purulence encountered and sent for an additional culture, and the [place] used to gently debride some more solidified purulent and fibrinous material before using copious irrigation and the Tee tip to complete irrigation here. Lastly the needle was then used to localize the DRUJ, which did not really have any additional purulence on needle and a slight tiffanie spread and [place] used to confirm no significant infection found here at least anymore after addressing the volar collection. An additional 3 L of normal saline was copiously irrigated in total on this dorsal area including the extensor tendons at the wound site, distally individually and sequentially, and then including the deeper wrist joint and distal radial ulnar joint. This wound was then inspected without any other infection material or suspicious tissue seen. The Esmarch was then wrapped from the fingertips proximal to the border of the i ncisions and no additional purulent material expressed from proximally into these incisions. Both wounds were copiously irrigated dried and then hemostasis achieved. The volar wound had more tissue injection and hyperemia with a slow ooze of bleeding. 1 g of vancomycin powder was then split and half distributed deeply in each volar and dorsal wounds and much less through the subcutaneous tissues. Subcutaneous tissue was then closed using 3-0 Monocryl buried interrupted and the skin closed using 4-0 nylon horizontal mattresses without undue tension intending to allow some drainage and covered with Xeroform generous 4 x 4 gauze, ABDs, and gently compressed with an Darío bandage. The patient awoke from anesthesia without complication and was transferred to the recovery room in a stable condition. Date of Procedure: 11/01/24
[2024-11-01] MEDS: ceFAZolin 2 GM/50 ML BAG 100 GM (13:07)
[2024-11-01] MEDS: TRANEXAMIC ACID/SOD. CHL. 1,000 MG/100 ML BAG 600 MG IVPB (13:12)
[2024-11-01] MEDS: Bupivacaine 0.25% Pres-Free W/EPI 30 ML VIAL (13:33)
[2024-11-01] MEDS: Vancomycin 1,000 MG VIAL 1000 MG (14:10)
[2024-11-01] MEDS: Albuterol/Ipratropium 3 ML UPD VIAL UPD (15:11)
[2024-11-01] MEDS: fentaNYL 100 MCG/2 ML VIAL IVP ×2 (15:16→15:31)
[2024-11-01] MEDS: HYDROmorphone 2 MG/ML SYR IVP ×4 (15:38→16:10)
[2024-11-01] MEDS: Normal Saline 10 ML VIAL IJ (15:38)
[2024-11-01] MEDS: Ketorolac 15 MG/ML VIAL IVP (15:43)
--- NOTE | 2024-11-01 16:22 | W.ANESPOSTOP ---
Postoperative Evaluation Date, Time and Location Date Performed: 11/01/24 Time Performed: 16:22 Patient Location: PACU Vital Signs Most Recent Imported Vital Signs: Most Recent Vital Signs Temp Pulse Resp BP Pulse Ox 36.8 C 59 L 13 155/100 H 93 11/01/24 16:15 11/01/24 16:16 11/01/24 16:16 11/01/24 16:15 11/01/24 16:16 Pain Score Most Recent Pain Score: Most Recent Pain Score Pain Level 8 11/01/24 16:17 Assessment Mental Status: Arousable with meaningful communication Airway and Respiratory Function: Abnormal Respiratory exam (See explanation) (requiring O2 at this time. ) Cardiovascular Function: Hemodynamically Stable Hydration Status: Adequately Hydrated Nausea & Vomiting: No Nausea or Vomiting Pain: Pain is tolerable per patient (He required a high amount of pain medication. ) Peripheral Nerve Block: Patient did not receive a nerve block
--- NOTE | 2024-11-01 17:04 | W.PM.DSUDISC ---
Date of service: 11/01/24 Discharge Plan Disposition Patient Disposition: Home Discharge Details Attending Provider: Gustavo Onofre Primary Care Provider: Ana María Elias Home Meds and New Rx's Prescriptions: New naproxen 250 mg tablet 250 - 500 mg PO BID PRNQty: 40 0RF Rx Instructions: take with a meal oxycodone 5 mg tablet 5 - 10 mg PO Q4H MDD 30 mg PRN (Reason: moderate to severe pain) Qty: 18 0RF Bio-K plus 50 billion cell capsule,delayed release(DR/EC) 1 cap PO DAILY 14 Days Qty: 14 0RF cefadroxil 1 gram tablet 1,000 mg PO BID 10 Days Qty: 20 0RF Rx Instructions: Use daily probiotic or yogurt while on antibiotic doxycycline hyclate 100 mg capsule 100 mg PO BID 10 Days Qty: 20 0RF Rx Instructions: Use daily probiotic or yogurt while on antibiotic Continued atenolol 50 mg tablet 100 mg PO DAILY rosuvastatin 20 mg tablet 20 mg PO DAILY hydrochlorothiazide 25 mg tablet 25 mg PO DAILY levothyroxine 125 mcg capsule 125 mcg PO DAILY potassium chloride 20 mEq tablet extended release 20 meq PO DAILY acetaminophen 500 mg tablet 1,000 mg PO Q8H PRN Qty: 90 0RF Rx Instructions: Take two tablets up to every 8 hours as needed for pain alprazolam 0.5 mg tablet 0.5 mg PO ONCE PRN (Reason: claustrophobia) Qty: 2 0RF Rx Instructions: Take within 3o minutes of MRI. Repeat x 1 if necessary. morphine 15 mg tablet 15 mg PO Q4H MDD 6 tabs PRN (Reason: pain) Qty: 15 0RF amlodipine 5 mg tablet 5 mg PO ONCE Patient Comments: TAKE ONE TABLET BY MOUTH EVERY DAY potassium chloride 20 mEq tablet,ER particles/crystals 40 meq PO BID Qty: 30 0RF Rx Instructions: take two tablets tonight, followed by 2 tabs, every 8 hours for the next 24 hours, followed by 2 tabs twice daily for 3 days prednisone 20 mg tablet 40 mg PO ONCE Qty: 10 0RF Discontinued cephalexin 500 mg capsule 500 mg PO Q6H 7 Days Qty: 28 0RF Discharge Instructions Additional Instructions: Surgery: Complex right hand and wrist infection irrigation and debridement 11/01/2024 Activity: Protect hand for a few weeks. Gently increase finger motion, hand gripping, and wrist motion to prevent stiffness. Recommend elevation to minimize swelling and discomfort. Prescriptions: Use antibiotics (cefadroxil and doxycycline) to treat infection. Use daily probiotic or yogurt while on antibiotics to prevent GI issues. Oxycodone 5 mg take 1?2 every 4-6 hours as needed for moderate to severe pain Naproxen 250 mg take 1?2 every 12 hours as needed for moderate pain or swelling You may use [id number] Tylenol (acetaminophen) as needed for mild pain Dressings: Leave dressing in place until follow-up. Follow-up: Next week with Dr. Onofre. My office will call tomorrow morning to make arrangements. Please call the office during business hours with any questions or concerns. Discharge Orders Discharge Orders: Discharge Order (Routine); Ordered 11/01/24 Ordered By: Ortega Keller DS: Diagnosis Discharge Diagnosis (1) Extensor tenosynovitis of right wrist: Status: Acute (2) Septic arthritis of wrist, right: Status: Acute
[2024-11-01] MEDS: ceFAZolin 1 GM/50 ML BAG IVPB (17:56)
[2024-11-01] MEDS: Naproxen 250 MG TAB PO (17:56)
[2024-11-01] MEDS: Lactobacillus Acidophilus CAP 1 CAP PO (17:56)
== END 2024-11-01 18:19 | disposition home or self-care (01) ==
PROVIDERS: PCP Physician Assistant Medical; Visit Provider Student in an Organized Health Care Education/Training Program
PROC: (CPT 25040; principal; 2024-11-01 12:30)
DX: M65.931 Unspecified synovitis and tenosynovitis, right forearm (principal); M00.9 Pyogenic arthritis, unspecified
CPT/HCPCS: 25040; 25028; 26020; 87077; 87070; 87075; 87186; 87205; J0131; J0690; J1100; J1171; J1885; J2003; J2250; J2405; J2704; J3010; J3370; J3475; J7620

== ENCOUNTER 2024-11-08 09:41 | Outpatient (CLI) | payer MEDICAID, SELFPAY ==
[2024-11-08 12:18] LABS: Anion Gap 8.4 mmol/L (3-11); BUN 16 mg/dL (7-18); CO2 25.6 mmol/L (21.0-32.0); CREATININE 0.9 mg/dL (0.55-1.02); Calcium 9.5 mg/dL (8.5-10.1); Chloride 105 mmol/L (98-107); Estimated GFR 72.73 (mL/min/1.73m2); Glucose 101 mg/dL (74-106); Magnesium 1.9 mg/dL (1.8-2.4); PHOSPHORUS 3.3 mg/dL (2.6-4.7); Potassium 4.1 mmol/L (3.5-5.1); Sodium 139 mmol/L (136-145)
== END 2024-11-08 09:42 | disposition home or self-care (01) ==
PROVIDERS: PCP Physician Assistant Medical; Visit Provider Family Medicine
DX: E87.6 Hypokalemia (principal)
CPT/HCPCS: 36415; 80048; 83735; 84100

== ENCOUNTER 2024-12-17 14:02 | Outpatient (CLI) | payer MEDICAID, SELFPAY ==
--- NOTE | 2024-12-17 12:45 | DI.RAD_ITS ---
Exam(s) XR KNEE RT 2V AP,LAT EXAM: XR KNEE RT 2V AP,LAT CLINICAL HISTORY: ANNUAL F/U BILAT TKAs. TECHNIQUE: 2D digital imaging was performed. COMPARISON: CR XR STANDING ALIGNMENT from 09/12/2023 CR XR KNEE RT 1V from 12/26/[address] UPPER EXTREMITY RT WO/W from 10/30/2024 CR XR KNEE LT 2V AP,LAT from 12/17/2024 FINDINGS: Two views The appearance of the right knee prosthesis is stable with no fracture or loosening evident and no evidence of osteomyelitis. Lucency in the upper tibia just anterior to the prosthesis stem appears unchanged from 1 year ago. IMPRESSION: Stable satisfactory appearance of right knee prosthesis DATA REPOSITORY: RADIATION DOSE DELIVERED:
--- NOTE | 2024-12-17 12:45 | DI.RAD_ITS ---
Exam(s) XR KNEE LT 2V AP,LAT EXAM: XR KNEE LT 2V AP,LAT CLINICAL HISTORY: ANNUAL F/U BILAT TKAs. TECHNIQUE: 2D digital imaging was performed. COMPARISON: CR XR KNEE RT 1V from 12/26/2023 CR XR KNEE LT 1V from 12/26/2023 FINDINGS: Two views There is satisfactory position appearance of the components of the left knee prosthesis. No fracture or loosening evident and no evidence of osteomyelitis. IMPRESSION: Stable satisfactory appearance of the left knee prosthesis. DATA REPOSITORY: RADIATION DOSE DELIVERED:
== END 2024-12-17 14:03 | disposition home or self-care (01) ==
LOC: DIORS 14:02
PROVIDERS: PCP Physician Assistant Medical; Visit Provider Student in an Organized Health Care Education/Training Program
DX: Z96.653 Presence of artificial knee joint, bilateral (principal)
CPT/HCPCS: 73560

== ENCOUNTER 2025-01-15 03:49 | Outpatient (CLI) | payer MEDICAID, SELFPAY ==
[2025-01-15 12:39] LABS: Anion Gap 9.5 mmol/L (3-11); BUN 19 mg/dL (7-18); CO2 26.5 mmol/L (21.0-32.0); Calcium 9.4 mg/dL (8.5-10.1); Chloride 107 mmol/L (98-107); Estimated GFR 98.34 (mL/min/1.73m2); Glucose 111 mg/dL (74-106); Potassium 3.7 mmol/L (3.5-5.1); Sodium 143 mmol/L (136-145)
== END 2025-01-15 03:50 | disposition home or self-care (01) ==
PROVIDERS: PCP Physician Assistant Medical; Visit Provider Physician Assistant Medical
DX: R25.2 Cramp and spasm (principal)
CPT/HCPCS: 36415; 80048